=== PATIENT | male | born 1970 | race Caucasian/White ===

== ENCOUNTER → 2024-03-07 | Outpatient (CLI) | payer MEDICARE, MEDICAID, SELFPAY ==
[2024-03-07 09:31] LABS: Basophils # (Auto) 0.1 Thou/mm3 (0.0-0.2); Basophils % (Auto) 1 % (0-2.5); Eosinophils # (Auto) 0.1 Thou/mm3 (0.0-0.5); Eosinophils % (Auto) 2 % (0-10); Hematocrit 38.4 % (41.0-53.0); Hemoglobin 13.2 g/dL (13.5-16.0); Immature Granulocytes % (Auto) 1 % (0-0); Immature Granulocytes Auto 0.04 Thou/mm3 (0.00-0.00); Lymphocytes # (Auto) 2.5 Thou/mm3 (1.0-4.8); Lymphocytes % (Auto) 30 % (10-50); Mean Corpuscular HGB Conc 34.4 g/dl (31.0-37.0); Mean Corpuscular Hemoglobin 28.1 pg (25.0-35.0); Mean Corpuscular Volume 82 fL (80-100); Monocytes # (Auto) 0.7 Thou/mm3 (0.0-0.8); Monocytes % (Auto) 9 % (0-12); Neutrophils # (Auto) 4.8 Thou/mm3 (1.8-7.7); Neutrophils % (Auto) 58 % (37-80); Nucleated Red Blood Cell % 0 /100 WBC (0); Platelet Count 219 Thou/mm3 (140-440); RDW Standard Deviation 41.3 fL (35.1-43.9); White Blood Count 8.2 Thou/mm3 (3.8-10.6)
[2024-03-07 09:38] LABS: B-Type Natriuretic Peptide 221 pg/mL (0-100)
[2024-03-07 09:40] LABS: Glucose Estimated Average 160 mg/dL (80-131); Hemoglobin A1C 7.2 % Hgb (4.8-6.0)
[2024-03-07 09:43] LABS: Prostate Specific Antigen 0.37 ng/mL (0-4.00)
[2024-03-07 09:48] LABS: Alanine Aminotransferase 27 U/L (10-49); Albumin, Serum 5.1 gm/dL (3.5-5.0); Albumin/Globulin Ratio 1.8 (1.2-2.2); Alkaline Phosphatase 112 U/L (46-116); Anion Gap 10 (7-16); Aspartate Amino Transferase 24 U/L (0-34); BUN/Creatinine Ratio 38 Ratio (12-20); Bilirubin,Total 1.1 mg/dL (0.3-1.2); Blood Urea Nitrogen 57 mg/dL (9-23); Calcium 9.9 mg/dL (8.3-10.6); Calcium (Corrected) 9.9 mg/dL (8.5-10.1); Carbon Dioxide 38.5 mMol/L (20.0-31.0); Cardiac Risk Estimate 2.2 RATIO (4.0-6.7); Chloride 82 mMol/L (98-107); Cholesterol 144 mg/dL (132-200); Creatinine (Component) 1.5 mg/dL (0.6-1.3); Free T4 (Free Thyroxine) 1.58 ng/dL (0.89-1.76); Globulin 2.8 gm/dL (2.3-3.5); Glucose 144 mg/dL (74-106); HDL Cholesterol 66 mg/dL (40-60); LDL Cholesterol,Calculated 50 mg/dL (0-130); Osmolality,Calculated 279 (275-295); Phosphorous 5.1 mg/dL (2.4-5.1); Potassium 3.8 mMol/L (3.4-5.1); Sodium 130 mMol/L (136-145); Thyroid Stimulating Hormone 9.68 uIU/mL (0.55-4.78); Total Protein 7.9 gm/dL (5.7-8.2); Triglycerides 142 mg/dL (30-150); eGFR 55 See Note
[2024-03-07 09:50] LABS: Vitamin D 25 Hydroxy Total 29.9 ng/mL (7.3-40.2)
== END | disposition home or self-care (01) ==
LOC: COPL 08:04
PROVIDERS: PCP Internal Medicine; Referring Provider Internal Medicine; Visit Provider Internal Medicine Cardiovascular Disease
DX: M19.90 Unspecified osteoarthritis, unspecified site (principal); E11.9 Type 2 diabetes mellitus without complications; N40.1 Benign prostatic hyperplasia with lower urinary tract symptoms; E55.9 Vitamin D deficiency, unspecified; E78.2 Mixed hyperlipidemia; E03.9 Hypothyroidism, unspecified; I50.22 Chronic systolic (congestive) heart failure; I48.21 Permanent atrial fibrillation
CPT/HCPCS: 36415; 80053; 80061; 82306; 83036; 83880; 84100; 84153; 84439; 84443; 85025

== ENCOUNTER → 2024-03-24 | Outpatient (CLI) | payer MEDICARE, MEDICAID, SELFPAY ==
--- NOTE | 2024-03-24 15:28 | XR_ITS ---
Examination: CT cervical spine without contrast 2-D sagittal reconstructions 2-D coronal reconstructions 3-D reconstructions. Exam date and time:March 24, 2024 1531 hours Comparison September 17, 2021 INDICATIONS: Patient fell today with injury to the neck, neck pain, history cervical fusion CTDI:vol (mGy) 16.5 DLP: (mGycm) 385 Technique: Multiple 2 mm axial sections of the cervical spine have been obtained. The coronal and sagittal reconstructions have been obtained. 3-D reconstructions have been obtained. Low dose protocols were performed. One or more of the following dose reduction techniques were used; automated exposure control, adjustment of the mA and/or KV according to patient size, use of iterative reconstruction technique. Findings: Axial sections demonstrate intact base of the skull. C1 exhibit satisfactory relationship to the odontoid. No acute cervical vertebral body fracture seen. Alignment posterior spinous processes satisfactory. Again noted cervical fusion C4-T1 with anatomic alignment with laminectomies Moderate disc narrowing C3-C4 C4-C5 moderate right neural foraminal stenosis No focal cervical disc protrusion Impression: No acute cervical fracture. Stable alignment extensive cervical fusion C4-C5 moderate right neural foraminal stenosis
== END | disposition home or self-care (01) ==
LOC: CCTX 14:57
PROVIDERS: PCP Internal Medicine; Referring Provider Internal Medicine; Visit Provider Internal Medicine
DX: M43.22 Fusion of spine, cervical region (principal); M48.02 Spinal stenosis, cervical region
CPT/HCPCS: 72125

== ENCOUNTER → 2024-04-27 | Outpatient (CLI) | payer MEDICARE, MEDICAID, SELFPAY ==
[2024-04-27 15:50] LABS: Basophils # (Auto) 0.1 Thou/mm3 (0.0-0.2); Basophils % (Auto) 1 % (0-2.5); Eosinophils # (Auto) 0.1 Thou/mm3 (0.0-0.5); Eosinophils % (Auto) 1 % (0-10); Hematocrit 38.3 % (41.0-53.0); Immature Granulocytes % (Auto) 1 % (0-0); Immature Granulocytes Auto 0.05 Thou/mm3 (0.00-0.00); Lymphocytes # (Auto) 3.3 Thou/mm3 (1.0-4.8); Lymphocytes % (Auto) 37 % (10-50); Mean Corpuscular HGB Conc 33.9 g/dl (31.0-37.0); Mean Corpuscular Hemoglobin 29.1 pg (25.0-35.0); Mean Corpuscular Volume 86 fL (80-100); Monocytes # (Auto) 0.9 Thou/mm3 (0.0-0.8); Monocytes % (Auto) 10 % (0-12); Neutrophils # (Auto) 4.7 Thou/mm3 (1.8-7.7); Neutrophils % (Auto) 52 % (37-80); Nucleated Red Blood Cell % 0 /100 WBC (0); Platelet Count 210 Thou/mm3 (140-440); RDW Standard Deviation 41.6 fL (35.1-43.9); Red Blood Count 4.46 Miln/mm3 (4.50-5.90); White Blood Count 9.1 Thou/mm3 (3.8-10.6)
[2024-04-27 16:05] LABS: Alanine Aminotransferase 30 U/L (10-49); Albumin, Serum 4.8 gm/dL (3.5-5.0); Albumin/Globulin Ratio 1.7 (1.2-2.2); Alkaline Phosphatase 137 U/L (46-116); Anion Gap 9 (7-16); Aspartate Amino Transferase 29 U/L (0-34); BUN/Creatinine Ratio 30 Ratio (12-20); Bilirubin,Total 0.6 mg/dL (0.3-1.2); Blood Urea Nitrogen 66 mg/dL (9-23); Calcium 9.7 mg/dL (8.3-10.6); Calcium (Corrected) 9.7 mg/dL (8.5-10.1); Carbon Dioxide 37.7 mMol/L (20.0-31.0); Chloride 88 mMol/L (98-107); Creatinine (Component) 2.2 mg/dL (0.6-1.3); Globulin 2.8 gm/dL (2.3-3.5); Glucose 181 mg/dL (74-106); Osmolality,Calculated 294 (275-295); Potassium 3.9 mMol/L (3.4-5.1); Sodium 135 mMol/L (136-145); Total Protein 7.6 gm/dL (5.7-8.2); eGFR 35 See Note
[2024-04-27 16:17] LABS: Glucose Estimated Average 166 mg/dL (80-131); Hemoglobin A1C 7.4 % Hgb (4.8-6.0)
== END | disposition home or self-care (01) ==
LOC: COPL 14:06
PROVIDERS: PCP Internal Medicine; Referring Provider Internal Medicine Cardiovascular Disease; Visit Provider Internal Medicine Cardiovascular Disease
DX: I50.22 Chronic systolic (congestive) heart failure (principal); I48.21 Permanent atrial fibrillation; I42.0 Dilated cardiomyopathy
CPT/HCPCS: 36415; 80053; 83036; 85025

== ENCOUNTER → 2024-05-10 | Outpatient (CLI) | payer MEDICARE, MEDICAID, SELFPAY ==
--- NOTE | 2024-05-10 16:35 | XR_ITS ---
Examination: Right elbow 3 views Technique: Elbow AP, oblique, lateral 3 views Exam date and time: May 18 1654 hrs. Indications: Patient fell 5 days ago dated to the elbow, elbow pain. Findings: No acute fracture No dislocation Small posterior bony spur Impression: No acute fracture.
== END | disposition home or self-care (01) ==
PROVIDERS: PCP Internal Medicine; Referring Provider Internal Medicine; Visit Provider Internal Medicine
DX: S59.901A Unspecified injury of right elbow, initial encounter (principal); W19.XXXA Unspecified fall, initial encounter
CPT/HCPCS: 73080

== ENCOUNTER 2024-05-22 01:45 | Emergency (ER) | payer MEDICARE, MEDICAID, SELFPAY ==
[2024-05-22 01:46] VITALS: BMI 38.2
[2024-05-22 02:09] VITALS: BP 130/60; PULSE 108; RESP 19; TEMP 37.1; O2SAT 96
--- NOTE | 2024-05-22 02:16 | XR_ITS ---
Examination: CT right ankle, without contrast. 2-D sagittal reconstructions. 2-D coronal reconstructions. 3-D reconstructions. Date and time of exam:May 22, 2024 0302 hrs. Indications: Patient fell 2 weeks ago with injury to the ankle, ankle pain CTDI: vol (mGy):5.35 DLP: (mGycm):140 Technique: Multiple 1.25 mm axial sections of the right ankle without intravenous contrast have been obtained. 2-D sagittal and coronal reconstructions have been obtained. 3-D reconstructions have been obtained. Low dose protocols were performed. One or more of the following dose reduction techniques were used; automated exposure control, adjustment of the mA and/or KV according to patient size, use of iterative reconstruction technique. Findings: Mild edema in the subcutaneous fatty tissue No soft tissue abscess Distal tibia and distal fibula intact Calcaneus cuboid and navicular and cuneiforms intact No cortical bone destruction Impression: Cellulitis pattern Mild osteoarthritis tibiotalar joint No fracture or cortical bone destruction
--- NOTE | 2024-05-22 02:16 | XR_ITS ---
Examination: CT right foot, without contrast. 2-D sagittal reconstructions. 2-D coronal reconstructions. 3-D reconstructions. Date and time of exam:May 22, 2024 0302 hrs. Indications: Right foot redness swelling and pain after falling 2 weeks ago CTDI: vol (mGy):5.38 DLP: (mGycm):151 Technique: Multiple 1.25 mm axial sections of the right foot without intravenous contrast have been obtained. 2-D sagittal and coronal reconstructions have been obtained. 3-D reconstructions have been obtained. Low dose protocols were performed. One or more of the following dose reduction techniques were used; automated exposure control, adjustment of the mA and/or KV according to patient size, use of iterative reconstruction technique. Findings: Edema in the soft tissues surrounding the foot and ankle Distal tibia and distal fibula intact Calcaneus talus navicular cuboid and cuneiforms intact No Lisfranc tarsometatarsal dislocation Significant narrowing first metatarsophalangeal joint No opaque foreign body Impression: Cellulitis pattern Significant osteoarthritis first metatarsophalangeal joint No fracture
--- NOTE | 2024-05-22 02:18 | PD.EDRME ---
Rapid Medical Screening Exam [facility] Arrival date/time: 05/22/24 01:45 With past medical history of COPD and on home oxygen presents to the emergency department complaining of right foot pain and swelling that started 2 days ago. Patient reports had a fall 2 weeks ago and another fall 2 days ago that resulted in injury to right foot. Chief Complaint: Ankle/Foot Injury Time Seen by Provider: 05/22/24 01:55 Vital signs: Vital Signs Temperature 98.8 F 05/22/24 02:09 Pulse Rate 108 H 05/22/24 02:09 Respiratory Rate 19 05/22/24 02:09 Blood Pressure 130/60 05/22/24 02:09 Pulse Oximetry (%) 96 05/22/24 02:09 Oxygen Delivery Method Room Air 05/22/24 02:09 Oxygen Flow Rate 3 05/22/24 02:09 Vital signs reviewed by provider: Yes
[2024-05-22] MEDS: HYDROcodone/APAP 5/325 TABLET 1 TAB PO (03:30)
--- NOTE | 2024-05-22 04:36 | PRELIM_ITS ---
CT right ankle without intravenous contrast (axial sections with sagittal and coronal reformats). May 22, 2024, at 0302 hours. 3D reconstructed images were also provided. Clinical History: Pain and swelling Comparison: No prior study is available for comparison. Findings: No fracture or dislocation is seen. Mild degenerative changes are seen in the ankle joint, evident with mildly decreased joint space, subchondral sclerosis, and articular surface irregularity. The ankle mortise is intact. Mild effusion is seen in the ankle joint. The visualized muscles are unremarkable with maintained intermuscular fat planes. A few prominent subcutaneous veins/varicose veins are seen in the leg. There is subcutaneous fat stranding and edema in the foot, around the ankle, and in the distal leg. No evidence of loculated drainable soft tissue fluid collection or abscess identified on this noncontrast study. No evidence of soft tissue gas. There is a small plantar calcaneal spur. Impression: 1. No evidence of fracture or dislocation. 2. Mild ankle osteoarthritis. 3. Subcutaneous fat stranding and edema in the foot, around the ankle, and in the distal leg, of unclear etiology; in the appropriate clinical setting, cellulitis cannot be excluded. 4. Other findings as described above. Please refer to the report on CT foot submitted separately. Report Electronically Signed By: Yancy Clemente 05/22/2024 4:36:10 AM [EST]
--- NOTE | 2024-05-22 04:45 | PRELIM_ITS ---
CT scan of the right foot without intravenous contrast (axial sections with sagittal and coronal reformats); dated May 22, 2024 at 0302 hours Clinical History: Right foot pain and swelling. Comparison: No prior study is available for comparison. Findings: There is no fracture or dislocation. No evidence of osteomyelitis or septic arthritis. The alignment is maintained. Osseous degenerative changes are noted. Small cysts/geodes are seen at the base of 2nd and 3rd metatarsals. The foot muscles are atrophic and demonstrates fatty infiltration. There is subcutaneous fat stranding and edema in the foot, around the ankle and in the distal leg. No evidence of loculated drainable soft tissue fluid collection or abscess identified on this noncontrast study. No evidence of soft tissue gas. Impression: No evidence of fracture or dislocation. Subcutaneous fat stranding and edema in the foot, around the ankle, and in the distal leg, of unclear etiology; in the appropriate clinical setting, cellulitis cannot be excluded. Other findings as described above. Recommend clinical correlation and follow- up. Please refer to report on CT ankle submitted separately. Report Electronically Signed By: Yancy Clemente 05/22/2024 4:44:54 AM [EST]
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
[2024-05-22] MEDS: cefTRIAXone 1,000 MG, LIDOCAINE 1% 20 ML 2.1 ML IM (05:16)
[2024-05-22 05:23] VITALS: RESP 18
== END 2024-05-22 05:23 | disposition home or self-care (01) ==
PROVIDERS: Emergency Provider Emergency Medicine; PCP Internal Medicine
DX: L03.115 Cellulitis of right lower limb (principal); J44.9 Chronic obstructive pulmonary disease, unspecified; Z99.81 Dependence on supplemental oxygen
CPT/HCPCS: 73700; 96372; 99284; J0696; J3490; A9270

== ENCOUNTER → 2024-07-25 | Outpatient (CLI) | payer MEDICARE, MEDICAID, SELFPAY ==
[2024-07-25 18:01] LABS: Vitamin D 25 Hydroxy Total 36.1 ng/mL (7.3-40.2)
[2024-07-25 18:02] LABS: Albumin, Serum 4.7 gm/dL (3.5-5.0); Anion Gap 4 (7-16); BUN/Creatinine Ratio 18 Ratio (12-20); Blood Urea Nitrogen 21 mg/dL (9-23); Calcium 9.5 mg/dL (8.3-10.6); Calcium (Corrected) 9.5 mg/dL (8.5-10.1); Carbon Dioxide 36.9 mMol/L (20.0-31.0); Cardiac Risk Estimate 2.6 RATIO (4.0-6.7); Chloride 99 mMol/L (98-107); Cholesterol 128 mg/dL (132-200); Creatinine (Component) 1.2 mg/dL (0.6-1.3); Free T4 (Free Thyroxine) 1.39 ng/dL (0.89-1.76); Glucose 155 mg/dL (74-106); HDL Cholesterol 49 mg/dL (40-60); LDL Cholesterol,Calculated 44 mg/dL (0-130); Osmolality,Calculated 285 (275-295); Phosphorous 3.7 mg/dL (2.4-5.1); Potassium 4.6 mMol/L (3.4-5.1); Sodium 140 mMol/L (136-145); Thyroid Stimulating Hormone 11.94 uIU/mL (0.55-4.78); Triglycerides 177 mg/dL (30-150); eGFR > 60 See Note
== END | disposition home or self-care (01) ==
PROVIDERS: PCP Internal Medicine; Referring Provider Internal Medicine Cardiovascular Disease; Visit Provider Internal Medicine Cardiovascular Disease
DX: E03.9 Hypothyroidism, unspecified (principal); E55.9 Vitamin D deficiency, unspecified; I50.22 Chronic systolic (congestive) heart failure
CPT/HCPCS: 36415; 80061; 80069; 82306; 84439; 84443

== ENCOUNTER → 2024-07-31 | Outpatient (CLI) | payer MEDICARE, MEDICAID, SELFPAY ==
[2024-07-31 17:44] LABS: Albumin, Serum 5.1 gm/dL (3.5-5.0); Anion Gap 10 (7-16); BUN/Creatinine Ratio 25 Ratio (12-20); Blood Urea Nitrogen 52 mg/dL (9-23); Calcium 10.1 mg/dL (8.3-10.6); Calcium (Corrected) 10.1 mg/dL (8.5-10.1); Carbon Dioxide > 40.0 mMol/L (20.0-31.0); Chloride 85 mMol/L (98-107); Creatinine (Component) 2.1 mg/dL (0.6-1.3); Glucose 243 mg/dL (74-106); Osmolality,Calculated 292 (275-295); Phosphorous 3.5 mg/dL (2.4-5.1); Potassium 3.7 mMol/L (3.4-5.1); Sodium 135 mMol/L (136-145); eGFR 37 See Note
== END | disposition home or self-care (01) ==
LOC: COPL 16:17
PROVIDERS: PCP Internal Medicine; Referring Provider Internal Medicine Cardiovascular Disease; Visit Provider Internal Medicine Cardiovascular Disease
DX: I50.22 Chronic systolic (congestive) heart failure (principal); I42.0 Dilated cardiomyopathy; J44.9 Chronic obstructive pulmonary disease, unspecified
CPT/HCPCS: 36415; 80069

== ENCOUNTER → 2024-09-12 | Outpatient (CLI) | payer MEDICARE, SELFPAY ==
[2024-09-12 14:06] LABS: Albumin, Serum 4.7 gm/dL (3.5-5.0); Anion Gap 9 (7-16); BUN/Creatinine Ratio 19 Ratio (12-20); Blood Urea Nitrogen 31 mg/dL (9-23); Calcium 9.5 mg/dL (8.3-10.6); Calcium (Corrected) 9.5 mg/dL (8.5-10.1); Carbon Dioxide 38.9 mMol/L (20.0-31.0); Chloride 89 mMol/L (98-107); Creatinine (Component) 1.6 mg/dL (0.6-1.3); Glucose 197 mg/dL (74-106); Osmolality,Calculated 285 (275-295); Phosphorous 4.2 mg/dL (2.4-5.1); Sodium 137 mMol/L (136-145); eGFR 51 See Note
== END | disposition home or self-care (01) ==
PROVIDERS: PCP Internal Medicine; Referring Provider Internal Medicine Cardiovascular Disease; Visit Provider Internal Medicine Cardiovascular Disease
DX: I42.0 Dilated cardiomyopathy (principal)
CPT/HCPCS: 36415; 80069

== ENCOUNTER → 2024-10-30 | Outpatient (CLI) | payer MEDICARE, MEDICAID, SELFPAY ==
[2024-10-30 10:15] LABS: Basophils # (Auto) 0.1 Thou/mm3 (0.0-0.2); Basophils % (Auto) 1 % (0-2.5); Eosinophils # (Auto) 0.1 Thou/mm3 (0.0-0.5); Eosinophils % (Auto) 2 % (0-10); Hematocrit 35.6 % (41.0-53.0); Hemoglobin 12.0 g/dL (13.5-16.0); Immature Granulocytes Auto 0.04 Thou/mm3 (0.00-0.00); Lymphocytes # (Auto) 2.1 Thou/mm3 (1.0-4.8); Lymphocytes % (Auto) 28 % (10-50); Mean Corpuscular HGB Conc 33.7 g/dl (31.0-37.0); Mean Corpuscular Hemoglobin 29.1 pg (25.0-35.0); Mean Corpuscular Volume 86 fL (80-100); Monocytes # (Auto) 0.7 Thou/mm3 (0.0-0.8); Monocytes % (Auto) 9 % (0-12); Neutrophils # (Auto) 4.4 Thou/mm3 (1.8-7.7); Neutrophils % (Auto) 59 % (37-80); Nucleated Red Blood Cell # 0.00 Thou/mm3 (0.00-0.00); Nucleated Red Blood Cell % 0 /100 WBC (0); Platelet Count 231 Thou/mm3 (140-440); RDW Standard Deviation 42.0 fL (35.1-43.9); Red Blood Count 4.12 Miln/mm3 (4.50-5.90); White Blood Count 7.4 Thou/mm3 (3.8-10.6)
[2024-10-30 10:26] LABS: Creatinine MALB Rnd Ur 66 mg/dL (30-125); Microalbumin Creat Ratio 17 mg/gCrea (<30); Microalbumin, Random Urine 11 mg/L (0-300)
[2024-10-30 10:28] LABS: Alanine Aminotransferase 50 U/L (10-49); Albumin, Serum 4.7 gm/dL (3.5-5.0); Albumin/Globulin Ratio 1.8 (1.2-2.2); Alkaline Phosphatase 85 U/L (46-116); Anion Gap 13 (7-16); Aspartate Amino Transferase 52 U/L (0-34); BUN/Creatinine Ratio 19 Ratio (12-20); Bilirubin,Total 0.7 mg/dL (0.3-1.2); Blood Urea Nitrogen 33 mg/dL (9-23); Calcium 9.8 mg/dL (8.3-10.6); Calcium (Corrected) 9.8 mg/dL (8.5-10.1); Carbon Dioxide 35.9 mMol/L (20.0-31.0); Cardiac Risk Estimate 2.7 RATIO (4.0-6.7); Chloride 84 mMol/L (98-107); Cholesterol 152 mg/dL (132-200); Creatinine (Component) 1.7 mg/dL (0.6-1.3); Free T4 (Free Thyroxine) 1.66 ng/dL (0.89-1.76); Globulin 2.6 gm/dL (2.3-3.5); Glucose 189 mg/dL (74-106); HDL Cholesterol 56 mg/dL (40-60); LDL Cholesterol,Calculated 58 mg/dL (0-130); Osmolality,Calculated 278 (275-295); Phosphorous 4.7 mg/dL (2.4-5.1); Potassium 3.7 mMol/L (3.4-5.1); Sodium 133 mMol/L (136-145); Thyroid Stimulating Hormone 11.65 uIU/mL (0.55-4.78); Total Protein 7.3 gm/dL (5.7-8.2); Triglycerides 192 mg/dL (30-150); eGFR 47 See Note
[2024-10-30 10:32] LABS: Prostate Specific Antigen 0.28 ng/mL (0-4.00)
[2024-10-30 10:44] LABS: Vitamin D 25 Hydroxy Total 30.4 ng/mL (7.3-40.2)
[2024-10-30 11:05] LABS: Glucose Estimated Average 197 mg/dL (80-131); Hemoglobin A1C 8.5 % Hgb (4.8-6.0)
== END | disposition home or self-care (01) ==
LOC: COPL 08:50
PROVIDERS: PCP Internal Medicine; Referring Provider Internal Medicine Cardiovascular Disease; Visit Provider Internal Medicine Cardiovascular Disease
DX: I11.0 Hypertensive heart disease with heart failure (principal); I50.22 Chronic systolic (congestive) heart failure; N40.1 Benign prostatic hyperplasia with lower urinary tract symptoms; E55.9 Vitamin D deficiency, unspecified
CPT/HCPCS: 36415; 80053; 80061; 82043; 82306; 82570; 83036; 84100; 84153; 84439; 84443; 85025

== ENCOUNTER 2024-12-09 19:25 | Inpatient (IN) | payer MEDICARE, MEDICAID, SELFPAY ==
[2024-12-09 19:27] VITALS: BMI 40.6
--- NOTE | 2024-12-09 19:31 | EKG_ITS ---
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
[2024-12-09 19:51] VITALS: BP 150/75; PULSE 91; RESP 17; TEMP 36.9; O2SAT 96
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
[2024-12-09 20:41] LABS: Basophils # (Auto) 0.0 Thou/mm3 (0.0-0.2); Basophils % (Auto) 0 % (0-2.5); Eosinophils # (Auto) 0.2 Thou/mm3 (0.0-0.5); Eosinophils % (Auto) 2 % (0-10); Hematocrit 33.0 % (41.0-53.0); Hemoglobin 11.0 g/dL (13.5-16.0); Immature Granulocytes Auto 0.03 Thou/mm3 (0.00-0.00); Lymphocytes # (Auto) 1.5 Thou/mm3 (1.0-4.8); Lymphocytes % (Auto) 21 % (10-50); Mean Corpuscular HGB Conc 33.3 g/dl (31.0-37.0); Mean Corpuscular Hemoglobin 29.7 pg (25.0-35.0); Mean Corpuscular Volume 89 fL (80-100); Monocytes # (Auto) 0.6 Thou/mm3 (0.0-0.8); Monocytes % (Auto) 7 % (0-12); Neutrophils # (Auto) 5.1 Thou/mm3 (1.8-7.7); Neutrophils % (Auto) 69 % (37-80); Nucleated Red Blood Cell # 0.00 Thou/mm3 (0.00-0.00); Nucleated Red Blood Cell % 0 /100 WBC (0); Platelet Count 194 Thou/mm3 (140-440); RDW Standard Deviation 44.3 fL (35.1-43.9); Red Blood Count 3.70 Miln/mm3 (4.50-5.90); White Blood Count 7.4 Thou/mm3 (3.8-10.6)
[2024-12-09 20:57] LABS: INR 1.1 (0.9-1.3); Prothrombin Time 12.4 Seconds (9.0-12.2)
[2024-12-09 21:00] LABS: Alanine Aminotransferase 45 U/L (10-49); Albumin, Serum 4.6 gm/dL (3.5-5.0); Albumin/Globulin Ratio 1.8 (1.2-2.2); Alkaline Phosphatase 81 U/L (46-116); Anion Gap 9 (7-16); Aspartate Amino Transferase 41 U/L (0-34); BUN/Creatinine Ratio 13 Ratio (12-20); Bilirubin,Total 0.7 mg/dL (0.3-1.2); Blood Urea Nitrogen 20 mg/dL (9-23); Calcium 9.6 mg/dL (8.3-10.6); Calcium (Corrected) 9.6 mg/dL (8.5-10.1); Carbon Dioxide 36.9 mMol/L (20.0-31.0); Chloride 94 mMol/L (98-107); Creatinine (Component) 1.5 mg/dL (0.6-1.3); Estimated Creatinine Clearance 87.3 mL/min (>60); Globulin 2.6 gm/dL (2.3-3.5); Glucose 161 mg/dL (74-106); Osmolality,Calculated 285 (275-295); Potassium 4.2 mMol/L (3.4-5.1); Sodium 140 mMol/L (136-145); Total Protein 7.2 gm/dL (5.7-8.2); Troponin I < 0.002 ng/mL (0.0-0.045); eGFR 55 See Note
[2024-12-09 21:04] LABS: B-Type Natriuretic Peptide 485 pg/mL (0-100)
[2024-12-09 23:53] VITALS: BP 112/70; PULSE 74; RESP 20; TEMP 37.1; O2SAT 96
[2024-12-10] VITALS (19 sets, daily range): BP systolic 110–164; BP diastolic 65–125; PULSE 66–88; RESP 11–19; TEMP 36.1–36.6; O2SAT 95–100
--- NOTE | 2024-12-10 01:15 | PD.EDRME ---
Rapid Medical Screening Exam [facility] Arrival date/time: 12/09/24 19:25 Chief Complaint: Chest Pain Time Seen by Provider: 12/09/24 19:59 Vital signs: Vital Signs Temperature 98.5 F 12/09/24 19:51 Pulse Rate 91 12/09/24 19:51 Respiratory Rate 17 12/09/24 19:51 Blood Pressure 150/75 H 12/09/24 19:51 Pulse Oximetry (%) 96 12/09/24 19:51 Oxygen Delivery Method Nasal Cannula 12/09/24 19:51 Oxygen Flow Rate 3 12/09/24 19:51 RME Narrative: 54-year-old male with an extensive cardiac history presents to the ER complaining of increased shortness of breath and chest pain which began this morning and since then he had to increase his O2 from 2 to 3 liters which is not typical for him. He states he gained about 20 pounds in the past week. 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 Patient reports compliance with metolazone 3mg daily amongst the remainder of his medications.
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
[2024-12-10] MEDS: FUROSEMIDE INJ 10 MG/ML 4ML VIAL 40 MG IVP (02:20)
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
--- NOTE | 2024-12-10 03:39 | PC.NURSE ---
pt refused phillips, unable to redirect
--- NOTE | 2024-12-10 04:26 | PC.NURSE ---
Attempted to call report, waiting for a callback
[2024-12-10 05:18] LABS: Basophils # (Auto) 0.1 Thou/mm3 (0.0-0.2); Basophils % (Auto) 1 % (0-2.5); Eosinophils # (Auto) 0.1 Thou/mm3 (0.0-0.5); Eosinophils % (Auto) 2 % (0-10); Hematocrit 32.1 % (41.0-53.0); Hemoglobin 10.4 g/dL (13.5-16.0); Immature Granulocytes Auto 0.02 Thou/mm3 (0.00-0.00); Lymphocytes # (Auto) 2.0 Thou/mm3 (1.0-4.8); Lymphocytes % (Auto) 28 % (10-50); Mean Corpuscular HGB Conc 32.4 g/dl (31.0-37.0); Mean Corpuscular Hemoglobin 29.3 pg (25.0-35.0); Mean Corpuscular Volume 90 fL (80-100); Monocytes # (Auto) 0.6 Thou/mm3 (0.0-0.8); Monocytes % (Auto) 9 % (0-12); Neutrophils # (Auto) 4.2 Thou/mm3 (1.8-7.7); Neutrophils % (Auto) 60 % (37-80); Nucleated Red Blood Cell # 0.00 Thou/mm3 (0.00-0.00); Nucleated Red Blood Cell % 0 /100 WBC (0); Platelet Count 187 Thou/mm3 (140-440); RDW Standard Deviation 45.0 fL (35.1-43.9); Red Blood Count 3.55 Miln/mm3 (4.50-5.90); White Blood Count 7.1 Thou/mm3 (3.8-10.6)
[2024-12-10 05:38] LABS: Glucose Estimated Average 183 mg/dL (80-131); Hemoglobin A1C 8.0 % Hgb (4.8-6.0)
[2024-12-10 05:42] LABS: Alanine Aminotransferase 38 U/L (10-49); Albumin, Serum 4.3 gm/dL (3.5-5.0); Albumin/Globulin Ratio 1.7 (1.2-2.2); Alkaline Phosphatase 74 U/L (46-116); Anion Gap 10 (7-16); Aspartate Amino Transferase 31 U/L (0-34); BUN/Creatinine Ratio 13 Ratio (12-20); Bilirubin,Total 0.6 mg/dL (0.3-1.2); Blood Urea Nitrogen 18 mg/dL (9-23); Calcium 9.6 mg/dL (8.3-10.6); Calcium (Corrected) 9.6 mg/dL (8.5-10.1); Carbon Dioxide 37.0 mMol/L (20.0-31.0); Chloride 92 mMol/L (98-107); Creatinine (Component) 1.4 mg/dL (0.6-1.3); Estimated Creatinine Clearance 93.6 mL/min (>60); Globulin 2.5 gm/dL (2.3-3.5); Glucose 182 mg/dL (74-106); Magnesium 2.0 mg/dL (1.6-2.6); Osmolality,Calculated 284 (275-295); Potassium 3.9 mMol/L (3.4-5.1); Sodium 139 mMol/L (136-145); Total Protein 6.8 gm/dL (5.7-8.2); eGFR 60 See Note
[2024-12-10] MEDS: BUMETANIDE INJ 0.25 MG/ML VIAL 4 ML 2 MG IVP ×3 (06:09→22:09)
[2024-12-10] MEDS: HYDROMORPHONE HCL 2 MG TABLET 4 MG PO ×3 (06:09→21:03)
[2024-12-10] MEDS: APIXABAN 2.5 MG TABLET 5 MG PO ×2 (09:12→21:04)
[2024-12-10] MEDS: DAPAGLIFLOZIN PROPANEDIOL 5 MG TABLET 10 MG PO (09:12)
[2024-12-10] MEDS: GABAPENTIN 300 MG CAPSULE PO (09:12)
[2024-12-10] MEDS: POTASSIUM CHL 10 mEq IVPB 10 MEQ/100 ML BAG 50 MEQ IV (09:12)
[2024-12-10] MEDS: PANTOPRAZOLE 40 MG TABLET PO (09:13)
[2024-12-10] MEDS: EPLERENONE 50 MG TABLET PO (09:18)
[2024-12-10] MEDS: INSULIN LISPRO (AdmeLOG) 1 UNIT/0.01 ML UNIT SC ×3 (09:18→17:38)
[2024-12-10] MEDS: AMIODARONE HCL 200 MG TABLET 100 MG PO ×3 (09:22→22:06)
--- NOTE | 2024-12-10 10:40 | PC.SS ---
Patient is alert/oriented. Patient was able to verify demographics. Patient resides with . Patient was admitted for CHF. Patient uses a walker at home. Patient has 02 at home ([employer]). He states he has 2-3L. Patient is independent with ADL's. Patient follows with Dr. Felix. Last appt. was 3 weeks ago. provides transportation assistance. Patient also follows with Dr. Marshall ([facility]-pain management) and Dr. Hutchinson. [facility]acy: [facility]. D/c plan: return home with . Alt medical decision maker: , Santa Barnes, D/c plan: return home
[2024-12-10] MEDS: LACTULOSE SYRUP 20 GM/30 ML UDC PO (11:00)
--- NOTE | 2024-12-10 11:35 | XR_ITS ---
Examination: Right elbow 3 views Technique: Elbow AP, oblique, lateral 3 views Exam date and time: December 10, 2024, 12 noon. Indications: Onset elbow pain today. Findings: Mild elbow osteoarthritis. 6 mm posterior bony olecranon spur. No fracture Impression: Mild elbow osteoarthritis.
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
--- NOTE | 2024-12-10 12:59 | ESPR_ITS ---
<Statement entered by Moses Montejo MD - 12/10/24 13:25> Overnight admission. Seen and examined at bedside and patient appeared to be ambulating well in the room and saturating well on his baseline 2 L nasal cannula. Follows Dr. Castaneda outpatient and will continue with Bumex 2 mg IV TID. Endorses stomach fullness/pressure and last BM 2 days ago so restarted home Movantik. Will monitor I's and O's and follow-up recommendations from cardiology. ----- Note reviewed and agree with care plan as documented. Please refer to the note below for further details. Plan discussed with attending physician Dr. Binh Montejo MD PGY-2 Internal Medicine Documentation for date of: 12/10/24 Subjective Subjective Interval history: Patient was seen and examined at bedside. No acute events took place overnight. Patient was admitted overnight for worsening chest pain, SOB requiring 3 L of O2 via NC (a liter more than his baseline), bilateral lower extremity edema, and more than 20 pound weight gain for the last week. Additionally patient reported history of constipation. Last BM 2d ago, feels too much pressure in his abdomen that is new. and takes Moventik laxative, which we resumed inpatient. Exam Vital Signs Temp Pulse Resp BP Pulse Ox O2 Del Method O2 Flow Rate 97.2 F 68 16 148/78 H 100 Nasal Cannula 2 12/10/24 08:00 12/10/24 09:22 12/10/24 08:00 12/10/24 09:22 12/10/24 08:00 12/10/24 08:00 12/10/24 08:00 Narrative Exam General: Alert, no acute distress.Conversational and obese habitus Skin: Warm, dry, intact. No rash or ecchymoses. Head: Normocephalic, atraumatic. Eye: Normal conjunctiva, PERRL. Throat: Oral mucosa moist. No obvious lesions in oropharynx. Cardiovascular: Regular rate and rhythm, no murmur, +S1/S2. Tele devise HR 68 afib. Respiratory: Lungs are clear to auscultation, respirations unlabored, mild rhonchi. No wheezing. Gastrointestinal: Transverse surgical scar on the left upper edge of the abdomen, and a morphine pump at the left hypochondriac area. Abdomen hard, nontender, distended. Percussion dull. No guarding or rebound tenderness. Extremities: BLE pitting edema from the dorsum of both feet up to the level of the knees, 1+ Rt and 2-3+ Lt. No edema, no cyanosis, no clubbing. ; scrotal edema Neuro: Alert and oriented x3.No focal deficits observed. Conversant, moving all extremities. No overt cerebellar signs/incoordination. Psychiatric: Cooperative, appropriate affect Objective Labs 12/11/24 05:14 12/11/24 05:14 Labs: Laboratory Results - last 24 hr 12/09/24 12/10/24 20:25 04:20 WBC 7.4 7.1 RBC 3.70 L 3.55 L Hgb 11.0 L 10.4 L Hct 33.0 L 32.1 L MCV 89 90 MCH 29.7 29.3 MCHC 33.3 32.4 RDW Std Deviation 44.3 H 45.0 H Plt Count 194 D 187 Neut % (Auto) 69 60 Lymph % (Auto) 21 28 Mchenry % (Auto) 7 9 Eos % (Auto) 2 2 Baso % (Auto) 0 1 Neut # (Auto) 5.1 4.2 Lymph # (Auto) 1.5 2.0 Mchenry # (Auto) 0.6 0.6 Eos # (Auto) 0.2 0.1 Baso # (Auto) 0.0 0.1 Immature Gran # (Auto) 0.03 H 0.02 H Absolute Nucleated RBC 0.00 0.00 Immature Gran % 0 0 Nucleated RBC % 0 0 PT 12.4 H INR 1.1 Sodium 140 139 Potassium 4.2 3.9 Chloride 94 L 92 L Carbon Dioxide 36.9 H 37.0 H Anion Gap 9 10 BUN 20 18 Creatinine 1.5 H 1.4 H Estim Creat Clear Calc 87.3 93.6 eGFR 55 L 60 BUN/Creatinine Ratio 13 13 Glucose [address] Glu mg/dL 183 H Hemoglobin A1c 8.0 H Calculated Osmolality 285 284 Calcium 9.6 9.6 Corrected Calcium 9.6 9.6 Magnesium 2.0 Total Bilirubin 0.7 0.6 AST 41 H 31 ALT 45 38 Alkaline Phosphatase 81 74 Troponin I < 0.002 B-Natriuretic Peptide 485 H* Total Protein 7.2 6.8 Albumin 4.6 4.3 Globulin 2.6 2.5 Albumin/Globulin Ratio 1.8 1.7 Quality Measures Quality Measures none Assessment & Plan Assessment Current Active Medications: Generic Name Dose Route Start Last Admin Trade Name Freanna PRN Reason Stop Dose Admin Acetaminophen 650 mg 12/10/24 10:22 Acetaminophen 325 Mg Tablet PO 01/09/25 03:07 Q6H PRN Fever >100.4 Amiodarone HCl 100 mg 12/10/24 09:15 12/10/24 09:22 Amiodarone Hcl 200 Mg Tablet PO 01/09/25 09:14 100 mg On Hold: 12/10/24 09:58 QID ELVIN Administration Apixaban 5 mg 12/10/24 09:00 12/10/24 09:12 Apixaban 2.5 Mg Tablet PO 01/09/25 08:59 5 mg BID ELVIN Administration Atorvastatin Calcium 40 mg 12/10/24 21:00 Atorvastatin Calcium 20 Mg Tablet PO 01/09/25 20:59 HS ELVIN Bumetanide 2 mg 12/10/24 06:00 12/10/24 06:09 Bumetanide Inj 0.25 Mg/Ml Vial 4 Ml IVP 01/09/25 05:59 2 mg TID ELVIN Administration Carvedilol 25 mg 12/10/24 09:00 12/10/24 09:13 Carvedilol 12.5 Mg Tablet PO 01/09/25 08:59 25 mg BID ELVIN Administration Eplerenone 50 Mg 0 ea 12/10/24 09:00 12/10/24 09:18 Tablet PO 01/09/25 08:59 1 tablet QDAY ELVIN Administration Dapagliflozin 10 mg 12/10/24 09:00 12/10/24 09:12 Dapagliflozin Propanediol 5 Mg Tablet PO 01/09/25 08:59 10 mg QAM ELVIN Administration Dextrose 25 ml 12/10/24 06:01 Dextrose 50%-Water Inj 50 Ml Syringe IV 01/09/25 06:00 Q15MIN PRN BG 50-70 responsive npo pt Dextrose 50 ml 12/10/24 06:01 Dextrose 50%-Water Inj 50 Ml Syringe IV 01/09/25 06:00 Q15MIN PRN BG <50 OR BG <70 & pt unresponsive Gabapentin 300 mg 12/10/24 09:00 12/10/24 09:12 Gabapentin 300 Mg Capsule PO 01/09/25 08:59 300 mg DAILY ELVIN Administration Glucagon 1 mg 12/10/24 06:01 Glucagon Inj 1 Mg Vial IM Q15MIN PRN BG <70, and no IV access Hydromorphone HCl 4 mg 12/10/24 10:20 12/10/24 11:01 Hydromorphone Hcl 2 Mg Tablet PO 12/15/24 03:21 4 mg Q4H PRN Administration PAIN SEVERE 7-10 Insulin Human Lispro 0 unit 12/10/24 07:30 12/10/24 12:18 Insulin Lispro (Admelog) 1 Unit/0.01 Ml Unit SC 01/09/25 07:29 1 unit AC ELVIN Administration Protocol Levothyroxine Sodium 88 mcg 12/10/24 06:00 12/10/24 05:49 Levothyroxine Sodium 25 Mcg Tablet PO 01/09/25 05:59 Not Given ACBR ELVIN Lorazepam 1 mg 12/10/24 18:00 Lorazepam 0.5 Mg Tablet PO 12/15/24 17:59 Q6HR ELVIN Mirtazapine 7.5 mg 12/10/24 21:00 Mirtazapine 15 Mg Tablet PO 01/09/25 20:59 HS ELVIN Naloxegol 25 mg 12/10/24 09:42 Naloxegol Oxalate 25 Mg Tablet (Non-Formulary) PO 01/09/25 09:41 HS ELVIN Ondansetron HCl 4 mg 12/10/24 03:08 Ondansetron Inj 2 Mg/Ml Inj 2 Ml IVP 01/09/25 03:07 Q6H PRN NAUSEA OR VOMITING Protocol Pantoprazole Sodium 40 mg 12/10/24 09:00 12/10/24 09:13 Pantoprazole 40 Mg Tablet PO 01/09/25 08:59 40 mg QDAY ELVIN Administration Sacubitril/Valsartan 1 tab 12/10/24 09:00 12/10/24 09:12 Sacubitril 24 Mg/Valsartan 26 Mg Tablet PO 01/09/25 08:59 1 tab BID ELVIN Administration Tamsulosin HCl 0.4 mg 12/10/24 03:30 12/10/24 03:38 Tamsulosin Hcl 0.4 Mg Capsule PO 01/09/25 03:29 Not Given HS ELVIN Plan Mr. Barnes is a 54-year-old patient with past medical history significant for patient for hypertension, non-insulin dependent diabetes mellitus, hypothyroidism, A-fib on Eliquis, cardiomyopathy s/p ICD in place, HFrEF? (EF 30%) on 2L home O2, pulmonary HTN type II ,who presented to the ED on 12/09/2024 for worsening chest pain, SOB requiring 3 L of O2 via NC (a liter above his baseline), bilateral lower extremity edema, and more than 20 pound weight gain during the previous week. Patient also had paroxysmal nocturnal dyspnea and orthopnea requiring multiple pillows to sleep. Patient was well controlled until recently when he started to develop progressive shortness of breath for the past week with associated chest pressure and increased abdominal girth. Patient was admitted for acute decompensated heart failure exacerbation. # Acute decompensation of previously stable heart failure #HFrEF (EF 30%) S/P ICD #Nonischemic cardiomyopathy #Hx Pulmonary hypertension type II Patient initially presented with worsening SOB on 3L NC. On physical examination noted abdominal and scrotal swelling,+2 edema BLE.? TTE done at Dr. Jak Castaneda's office on 12/23/2023 revealed LVEF 30%. CXR showing vascular congestion. BNP 485.? Troponin < 0.002 In ED received lasix 40mg x2 Allergy to aldactone Patient is a client of Dr. Castaneda's clinic -resume home GDMT: Entresto 1 tab BID, Farxiga 10 mg, Coreg 25 mg p.o. BID, eplerenone 50mg qday -IV Bumex 2 mg TID? -Strict ins and outs -Diet: 2g sodium restriction -Daily weights -Fluid restriction 1500 ml - Walker catheter -Supplemental O2 as needed, wean as tolerated - Keep K > 4 and Mg > 2 - Plant Senior Manager Dr. Castaneda consulted, appreciate recommendations ?Echo ordered ?Added metolazone 5mg daily #Atrial fibrillation, rate controlled EKG revealed paced ventricular rhythm no ST changes, rate of 85 and QTc of 550 Home medication : Coreg 25 Mg BID, amiodarone 200 Mg twice daily, Eliquis 5 Mg twice daily CHADsVASc score 3 ; 3.2% risk of stroke/ TIA/systemic embolism HASBLED score 2 ; Moderate risk of major bleeding -Currently rate well-controlled with Coreg 25 mg, rhythm control amiodarone 200 mg p.o. BID daily, anticoagulant Eliquis 5 mg - resumed home medication as mentioned above - Continue to monitor on telemetry - Continue amiodarone as taken at home 100mg QID #Constipation Patient reports abdominal fullness and pressure with last BM 2 days ago - Resumed home laxative Movantik #Hypothyroidism - Resume home levothyroxine 88 mcg ACBR #Hypertension - Resume home medication as above # Hyperlipidemia Last lipid panel showed triglyceride 192, cholesterol 152, LDL 58, HDL 56 -Resume home medication atorvastatin 40 mg QDAY #Kxj-sytsxam-wnyknawnr type 2 diabetes On admission glucose 182 and A1c 8. Home Farxiga - Resume home Farxiga 10 mg po -Bedside glucose checks ACHS - Started insulin sliding scale #Chronic pain syndrome #OA of Rt Elbow - Resume home gabapentin 300 mg Qday? - Dilaudid 4 mg p.o. Q6H PRN? for pain control # Chronic normocytic anemia On admission hemoglobin 10.4, hematocrit 32.1.? For last 2 years H&H has been low but stable? Not actively bleeding -Continue to monitor H&H #Hx of anxiety #Hx Depression X-ray showed Mild elbow osteoarthritis. 6 mm posterior bony olecranon spur. -Topical diclofenac 4g apply to painful joint Q4h PRN -resume? home mirtazapine 7.5 mg p.o.hs, -resume home? Ativan 0.5 mg Q6h for severe anxiety Hospital management: Lines: peripheral IV Diet: Cardiac Bowel: Senna GI prophylaxis: Protonix 40 mg DVT prophylaxis: Eliquis 5mg Disposition: tele acute CHF exacerbation CODE STATUS: Full code This case was discussed with my attending physician, Dr. Purcell, and senior resident, Dr Gustabo Hernandez. Milse Rider DO PGY I Attending Provider Attestation/Addendum Teresa Au DO, attest that I was physically present for the olson portions of the service and evaluated the patient with the resident and I reviewed and discussed the case with the resident and agree with the resident's findings and plans of care as documented above Patient seen and evaluated this AM. Patient reports being compliant with his medications at home. However, he noted that he had gained about 20lbs in the past week. He reports dyspnea on exertion, LE edema and worsening abdominal bloating. Patient is currently on bumex 2mg IV TID. Will continue with IV diuresis as he continues to have b/l edema that is nonpitting. He otherwise denies any chest pain. He is also currently requiring 3L/NC.
--- NOTE | 2024-12-10 13:06 | ECHO_ITS ---
Transthoracic Echo Report Ht (in): 75 Wt (lb): 324 Exam Location: Echo Lab Status: Inpatient Shear Helper: Clementine Dobbins Indications: Procedure Performed: BP: 110 / 57 HR: 60 Technical Quality: Technically difficult study MEASUREMENTS (Male / Female) Normal Values 2D ECHO LV Diastolic Diameter PLAX 6.4 cm 4.2 - 5.9 / 3.9 - 5.3 cm LV Systolic Diameter PLAX 5.5 cm IVS Diastolic Thickness 0.8 cm 0.6 - 1.0 / 0.6 - 0.9 cm LVPW Diastolic Thickness 1.1 cm 0.6 - 1.0 / 0.6 - 0.9 cm LV Relative Wall Thickness 0.3 LVOT Diameter 2.4 cm Aortic Root Diameter 3.5 cm LA Systolic Diameter LX 3.3 cm 3.0 - 4.0 / 2.7 - 3.8 cm Ascending Aorta Diameter 3.6 cm M-MODE Aortic Root Diameter MM 3.0 cm LA Systolic Diameter MM 3.4 cm LA Ao Ratio MM 1.1 AV Cusp Separation MM 2.3 cm DOPPLER AV Peak Velocity 148.0 cm/s AV Peak Gradient 8.8 mmHg AV Mean Gradient 5.0 mmHg AV Velocity Time Integral 37.2 cm LVOT Peak Velocity 106.0 cm/s LVOT Peak Gradient 4.5 mmHg LVOT Velocity Time Integral 25.3 cm LVOT Cardiac Index 2412.9 cm?/min?m? AV Area Cont Eq vti 3.1 cm? AV Area Cont Eq pk 3.2 cm? MV Area PHT 5.6 cm? Mitral E Point Velocity 67.9 cm/s Mitral A Point Velocity 61.1 cm/s Mitral E to A Ratio 1.1 LV E' Lateral Velocity 14.7 cm/s Mitral E to LV E' Lateral Ratio 4.6 LV E' Septal Velocity 7.7 cm/s Mitral E to LV E' Septal Ratio 8.8 TR Peak Velocity 252.5 cm/s TR Peak Gradient 25.5 mmHg PV Peak Velocity 80.1 cm/s PV Peak Gradient 2.6 mmHg FINDINGS Left Ventricle The left ventricle is dilated with dilated cardiomyopathy severe global hypokinesis ejection fraction of approximately 25 to 30%. Right Ventricle The right ventricular systolic function is moderately decreased. The right ventricular size is mildy increased. Left Atrium The left atrium is normal by two-dimensional, color flow and Doppler imaging with no structural abnormalities, no thrombus formation present. Right Atrium The right atrium is normal by two-dimensional imaging, color flow and Doppler imaging with no structural abnormalities, no thrombus formation present. Atrial Septum The interatrial septum appears normal with no evidence of a shunt. Aorta The aorta is normal by two-dimensional, color flow and Doppler interrogation. Mitral Valve The mitral valve is normal by two-dimensional, color flow and Doppler interrogation. There is no significant mitral valve regurgitation, stenosis or prolapse. Aortic Valve The aortic valve is trileaflet and normal by two-dimensional, color flow and Doppler interrogation. There is no significant aortic valve regurgitation. Tricuspid Valve The tricuspid valve is normal by two-dimensional, color flow and Doppler interrogation. There is mild tricuspid valve regurgitation. Unable to estimate the right ventricular systolic pressure. Pulmonic Valve The pulmonic valve is not well visualized. There is no significant pulmonic valve regurgitation. Vessels Inferior vena cava not well visualized. Pericardium The pericardium is normal by two-dimensional imaging. There is no significant pericardial effusion. CONCLUSIONS Indication: CHF exacerbation Dilated cardiomyopathy with severe left ventricle systolic dysfunction ejection fraction 25 to 30%. RV systolic function is moderately decreased. The right ventricular size is mildy increased. Mild to moderate tricuspid regurgitation with evidence of normal PA pressure approximately 35 mmHg. Evidence of pacemaker leads in the right ventricle. Kandis Hutchinson (Electronically Signed) Final Date: 12 December 2024 17:34
[2024-12-10] MEDS: NALOXEGOL OXALATE 25 MG TABLET (NON-FORMULARY) PO (13:07)
[2024-12-10] MEDS: ACETAMINOPHEN 325 MG TABLET 650 MG PO ×2 (13:19→22:07)
[2024-12-10] MEDS: ATORVASTATIN CALCIUM 20 MG TABLET 40 MG PO (21:04)
[2024-12-10] MEDS: MIRTAZAPINE 15 MG TABLET 7.5 MG PO (21:05)
[2024-12-10] MEDS: TAMSULOSIN HCL 0.4 MG CAPSULE PO (21:05)
[2024-12-10] MEDS: DICLOFENAC 1% TOP GEL 100 GM TUBE TOP (23:56)
[2024-12-11] VITALS (19 sets, daily range): BP systolic 110–140; BP diastolic 57–95; PULSE 49–84; RESP 12–17; TEMP 35.9–36.4; O2SAT 96–100
[2024-12-11] MEDS: HYDROMORPHONE HCL 2 MG TABLET 4 MG PO ×6 (01:03→22:14)
[2024-12-11] MEDS: ACETAMINOPHEN 325 MG TABLET 650 MG PO ×2 (04:21→11:16)
[2024-12-11 05:33] LABS: Basophils # (Auto) 0.1 Thou/mm3 (0.0-0.2); Basophils % (Auto) 1 % (0-2.5); Eosinophils # (Auto) 0.1 Thou/mm3 (0.0-0.5); Eosinophils % (Auto) 1 % (0-10); Hematocrit 37.0 % (41.0-53.0); Hemoglobin 12.2 g/dL (13.5-16.0); Immature Granulocytes Auto 0.03 Thou/mm3 (0.00-0.00); Lymphocytes # (Auto) 2.2 Thou/mm3 (1.0-4.8); Lymphocytes % (Auto) 20 % (10-50); Mean Corpuscular HGB Conc 33.0 g/dl (31.0-37.0); Mean Corpuscular Hemoglobin 29.7 pg (25.0-35.0); Mean Corpuscular Volume 90 fL (80-100); Monocytes # (Auto) 1.0 Thou/mm3 (0.0-0.8); Monocytes % (Auto) 9 % (0-12); Neutrophils # (Auto) 7.5 Thou/mm3 (1.8-7.7); Neutrophils % (Auto) 69 % (37-80); Nucleated Red Blood Cell # 0.00 Thou/mm3 (0.00-0.00); Nucleated Red Blood Cell % 0 /100 WBC (0); Platelet Count 220 Thou/mm3 (140-440); RDW Standard Deviation 45.1 fL (35.1-43.9); Red Blood Count 4.11 Miln/mm3 (4.50-5.90); White Blood Count 10.9 Thou/mm3 (3.8-10.6)
[2024-12-11] MEDS: AMIODARONE HCL 200 MG TABLET 100 MG PO ×4 (05:38→20:46)
[2024-12-11] MEDS: DICLOFENAC 1% TOP GEL 100 GM TUBE TOP ×2 (05:40→20:43)
[2024-12-11] MEDS: LEVOTHYROXINE SODIUM 88 MCG TABLET PO (06:07)
[2024-12-11 06:08] LABS: Alanine Aminotransferase 38 U/L (10-49); Albumin, Serum 4.8 gm/dL (3.5-5.0); Albumin/Globulin Ratio 1.6 (1.2-2.2); Alkaline Phosphatase 92 U/L (46-116); Anion Gap 11 (7-16); Aspartate Amino Transferase 30 U/L (0-34); BUN/Creatinine Ratio 10 Ratio (12-20); Bilirubin,Total 0.9 mg/dL (0.3-1.2); Blood Urea Nitrogen 15 mg/dL (9-23); Calcium 10.6 mg/dL (8.3-10.6); Calcium (Corrected) 10.6 mg/dL (8.5-10.1); Carbon Dioxide 37.9 mMol/L (20.0-31.0); Chloride 88 mMol/L (98-107); Creatinine (Component) 1.5 mg/dL (0.6-1.3); Estimated Creatinine Clearance 86.0 mL/min (>60); Globulin 3.0 gm/dL (2.3-3.5); Glucose 211 mg/dL (74-106); Magnesium 2.3 mg/dL (1.6-2.6); Osmolality,Calculated 280 (275-295); Phosphorous 4.4 mg/dL (2.4-5.1); Potassium 3.5 mMol/L (3.4-5.1); Sodium 137 mMol/L (136-145); Total Protein 7.8 gm/dL (5.7-8.2); eGFR 55 See Note
[2024-12-11] MEDS: INSULIN LISPRO (AdmeLOG) 1 UNIT/0.01 ML UNIT SC ×4 (07:20→21:06)
[2024-12-11] MEDS: DAPAGLIFLOZIN PROPANEDIOL 5 MG TABLET 10 MG PO (09:04)
[2024-12-11] MEDS: PANTOPRAZOLE 40 MG TABLET PO (09:04)
[2024-12-11] MEDS: APIXABAN 2.5 MG TABLET 5 MG PO ×2 (09:04→20:44)
[2024-12-11] MEDS: GABAPENTIN 300 MG CAPSULE PO (09:04)
[2024-12-11] MEDS: BUMETANIDE INJ 0.25 MG/ML VIAL 4 ML 2 MG IVP ×2 (09:05→20:50)
[2024-12-11] MEDS: EPLERENONE 50 MG TABLET PO (09:12)
[2024-12-11] MEDS: LACTULOSE SYRUP 20 GM/30 ML UDC PO (10:27)
[2024-12-11] MEDS: MULTIVITAMINS TABLET 1 TAB PO (11:10)
--- NOTE | 2024-12-11 13:16 | ESPR_ITS ---
<Statement entered by Moses Montejo MD - 12/11/24 21:21> No acute overnight events. Seen and examined at bedside and patient states that pressure in abdomen has improved. Noted to have injured his right elbow yesterday but pain currently well-controlled with current regimen. Touch base with cardiology and recommended to decrease Bumex to 2 mg twice daily. Will diurese for another day and reevaluate tomorrow. Patient able to diurese total of approximately 5.7 L in 24 hours. Anticipate discharge within next 24 to 48 hours. ----- Note reviewed and agree with care plan as documented. Please refer to the note below for further details. Plan discussed with attending physician Dr. Binh Montejo MD PGY-2 Internal Medicine Documentation for date of: 12/11/24 Subjective Subjective Interval history: Patient was seen and examined at bedside. No acute events took place overnight. Patient reports improvement in symptoms including pressure relief in his abdomen. Patient states that he injured his right elbow when elevating himself up his bed. While imaging was negative for dislocation or fracture, patient reports that diclofenac gel, Tylenol helped with the pain. Additionally reports that while he is oxygen requirement may seem low during times that he rests lying in bed, they are an inaccurate picture of his true oxygen demands which are typically higher when he stands and walks about. He insists that his O2 flow does not go lower than 2 L. Exam Vital Signs Temp Pulse Resp BP Pulse Ox O2 Del Method O2 Flow Rate 97.5 F 65 12 122/95 H 100 Nasal Cannula 2 12/11/24 12:12/11/24 12:12/11/24 12:12/11/24 12:12/11/24 12:12/11/24 12:12/11/24 12:00 Narrative Exam General: Alert, no acute distress.Conversational and obese habitus Skin: Warm, dry, intact. No rash or ecchymoses. Head: Normocephalic, atraumatic. Eye: Normal conjunctiva, PERRL. Throat: Oral mucosa moist. No obvious lesions in oropharynx. Cardiovascular: Regular rate and rhythm, no murmur, +S1/S2. Tele devise shows NSR, HR 76. Respiratory: Lungs are clear to auscultation, respirations unlabored, mild rhonchi. No wheezing. Gastrointestinal: Transverse surgical scar on the left upper edge of the abdomen, and a morphine pump at the left hypochondriac area. Abdomen hard, nontender, distended. Percussion dull. No guarding or rebound tenderness. Extremities: BLE pitting edema from the dorsum of both feet up to the level of the knees, 1+ Rt and 2+ Lt. No cyanosis, no clubbing. ; scrotal edema Neuro: Alert and oriented x3.No focal deficits observed. Conversant, moving all extremities. No overt cerebellar signs/incoordination. Psychiatric: Cooperative, appropriate affect Objective Labs 12/12/24 05:24 12/12/24 05:24 Labs: Laboratory Results - last 24 hr 12/11/24 05:14 WBC 10.9 H D RBC 4.11 L Hgb 12.2 L Hct 37.0 L MCV 90 MCH 29.7 MCHC 33.0 RDW Std Deviation 45.1 H Plt Count 220 D Neut % (Auto) 69 Lymph % (Auto) 20 [place] % (Auto) 9 Eos % (Auto) 1 Baso % (Auto) 1 Neut # (Auto) 7.5 Lymph # (Auto) 2.2 [place] # (Auto) 1.0 H Eos # (Auto) 0.1 Baso # (Auto) 0.1 Immature Gran # (Auto) 0.03 H Absolute Nucleated RBC 0.00 Immature Gran % 0 Nucleated RBC % 0 Sodium 137 Potassium 3.5 Chloride 88 L Carbon Dioxide 37.9 H Anion Gap 11 BUN 15 Creatinine 1.5 H Estim Creat Clear Calc 86.0 eGFR 55 L BUN/Creatinine Ratio 10 L Glucose 211 H Calculated Osmolality 280 Calcium 10.6 Corrected Calcium 10.6 H Phosphorus 4.4 Magnesium 2.3 Total Bilirubin 0.9 AST 30 ALT 38 Alkaline Phosphatase 92 D Total Protein 7.8 Albumin 4.8 D Globulin 3.0 Albumin/Globulin Ratio 1.6 Quality Measures Quality Measures none Assessment & Plan Assessment Current Active Medications: Generic Name Dose Route Start Last Admin Trade Name Freq PRN Reason Stop Dose Admin Acetaminophen 650 mg 12/10/24 10:22 12/11/24 04:21 Acetaminophen 325 Mg Tablet PO 01/09/25 03:07 650 mg Q6H PRN Administration Fever >100.4 Amiodarone HCl 100 mg 12/10/24 09:15 12/11/24 11:15 Amiodarone Hcl 200 Mg Tablet PO 01/09/25 09:14 100 mg QID ELVIN Administration Apixaban 5 mg 12/10/24 09:00 12/11/24 09:04 Apixaban 2.5 Mg Tablet PO 01/09/25 08:59 5 mg BID ELVIN Administration Atorvastatin Calcium 40 mg 12/10/24 21:00 12/10/24 21:04 Atorvastatin Calcium 20 Mg Tablet PO 01/09/25 20:59 40 mg HS ELVIN Administration Bumetanide 2 mg 12/11/24 21:00 Bumetanide Inj 0.25 Mg/Ml Vial 4 Ml IVP 01/10/25 20:59 BID ELVIN Carvedilol 25 mg 12/10/24 09:00 12/11/24 09:04 Carvedilol 12.5 Mg Tablet PO 01/09/25 08:59 25 mg BID ELVIN Administration Eplerenone 50 Mg 0 ea 12/10/24 09:00 12/11/24 09:12 Tablet PO 01/09/25 08:59 1 tablet QDAY ELVIN Administration Dapagliflozin 10 mg 12/10/24 09:00 12/11/24 09:04 Dapagliflozin Propanediol 5 Mg Tablet PO 01/09/25 08:59 10 mg QAM ELVIN Administration Dextrose 25 ml 12/10/24 06:01 Dextrose 50%-Water Inj 50 Ml Syringe IV 01/09/25 06:00 Q15MIN PRN BG 50-70 responsive npo pt Dextrose 50 ml 12/10/24 06:01 Dextrose 50%-Water Inj 50 Ml Syringe IV 01/09/25 06:00 Q15MIN PRN BG <50 OR BG <70 & pt unresponsive Diclofenac Sodium 4 gm 12/10/24 15:13 12/11/24 05:40 Diclofenac 1% Top Gel 100 Gm Tube TOP 01/09/25 17:59 4 gm Q6HR PRN Administration elbow pain Gabapentin 300 mg 12/10/24 09:00 12/11/24 09:04 Gabapentin 300 Mg Capsule PO 01/09/25 08:59 300 mg DAILY ELVIN Administration Glucagon 1 mg 12/10/24 06:01 Glucagon Inj 1 Mg Vial IM Q15MIN PRN BG <70, and no IV access Hydromorphone HCl 4 mg 12/10/24 10:20 12/11/24 09:43 Hydromorphone Hcl 2 Mg Tablet PO 12/15/24 03:21 4 mg Q4H PRN Administration PAIN SEVERE 7-10 Insulin Human Lispro 0 unit 12/11/24 07:53 12/11/24 11:24 Insulin Lispro (Admelog) 1 Unit/0.01 Ml Unit SC 01/10/25 07:29 2 unit ACHS ELVIN Administration Protocol Lactulose 20 gm 12/11/24 10:00 12/11/24 10:27 Lactulose Syrup 20 Gm/30 Ml Udc PO 01/10/25 09:59 20 gm DAILY ELVIN Administration Protocol Levothyroxine Sodium 88 mcg 12/11/24 06:00 12/11/24 06:07 Levothyroxine Sodium 88 Mcg Tablet PO 01/10/25 05:59 88 mcg ACBR ELVIN Administration Lorazepam 1 mg 12/10/24 18:00 12/11/24 12:10 Lorazepam 0.5 Mg Tablet PO 12/15/24 17:59 1 mg Q6HR ELVIN Administration Metolazone 5 mg 12/10/24 13:15 12/11/24 09:02 Metolazone 2.5 Mg Tablet PO 01/09/25 13:14 5 mg QDAY ELVIN Administration Mirtazapine 7.5 mg 12/10/24 21:00 12/10/24 21:05 Mirtazapine 15 Mg Tablet PO 01/09/25 20:59 7.5 mg HS ELVIN Administration Multivitamins 1 tab 12/11/24 10:45 12/11/24 11:10 Multivitamins Tablet PO 01/10/25 10:44 1 tab QDAY ELVIN Administration Naloxegol 25 mg 12/10/24 09:42 12/10/24 13:07 Naloxegol Oxalate 25 Mg Tablet (Non-Formulary) PO 01/09/25 09:41 25 mg HS ELVIN Administration Ondansetron HCl 4 mg 12/10/24 03:08 Ondansetron Inj 2 Mg/Ml Inj 2 Ml IVP 01/09/25 03:07 Q6H PRN NAUSEA OR VOMITING Protocol Pantoprazole Sodium 40 mg 12/10/24 09:00 12/11/24 09:04 Pantoprazole 40 Mg Tablet PO 01/09/25 08:59 40 mg QDAY ELVIN Administration Potassium Chloride 40 meq 12/11/24 08:00 12/11/24 09:07 Potassium Chloride 20 Meq Tabcr PO 12/12/24 07:59 Not Given BIDWM ELVIN Sacubitril/Valsartan 1 tab 12/10/24 09:00 12/11/24 09:04 Sacubitril 24 Mg/Valsartan 26 Mg Tablet PO 01/09/25 08:59 1 tab BID ELVIN Administration Tamsulosin HCl 0.4 mg 12/10/24 03:30 12/10/24 21:05 Tamsulosin Hcl 0.4 Mg Capsule PO 01/09/25 03:29 0.4 mg HS ELVIN Administration Plan Mr. Barnes is a 54-year-old patient with past medical history significant for patient for hypertension, non-insulin dependent diabetes mellitus, hypothyroidism, A-fib on Eliquis, cardiomyopathy s/p ICD in place, HFrEF? (EF 30%) on 2L home O2, pulmonary HTN type II ,who presented to the ED on 12/09/2024 for worsening chest pain, SOB requiring 3 L of O2 via NC (a liter above his baseline), bilateral lower extremity edema, and more than 20 pound weight gain during the previous week. Patient also had paroxysmal nocturnal dyspnea and orthopnea requiring multiple pillows to sleep. Patient was well controlled until recently when he started to develop progressive shortness of breath for the past week with associated chest pressure and increased abdominal girth. Patient was admitted for acute decompensated heart failure exacerbation. Patient was resumed on home GDMT with Entresto twice daily, Farxiga 10 mg, Coreg 25 mg twice daily, eplerenone 50 mg daily as well as aggressive diuresis with Bumex 2 mg 3 times daily. By 12/11, Patient had lost 6.1 L in cumulative CARISSA. On 12/11 alone, total urine output was 5.7 L indicating overdiuresis on current diuretic regiment. Bumex was reduced to 2 mg twice daily. Morning glucose elevated at 201 while patient had been on SSI the day before; mireya SSI by 1 step (2). # Acute decompensation of previously stable heart failure #HFrEF (EF 30%) S/P ICD #Nonischemic cardiomyopathy #Hx Pulmonary hypertension type II Patient initially presented with worsening SOB on 3L NC. On physical examination noted abdominal and scrotal swelling,+2 edema BLE.? TTE done at Dr. Jak Castaneda's office on 12/23/2023 revealed LVEF 30%. CXR showing vascular congestion. BNP 485.? Troponin < 0.002 In ED received lasix 40mg x2 Allergy to aldactone Patient is a client of Dr. Castaneda's clinic ? By 12/11, Patient had lost 6.1 L in cumulative CARISSA. On 12/11 alone, total urine output was 5.7 L indicating overdiuresis on current diuretic regiment -resume home GDMT: Entresto 1 tab BID, Farxiga 10 mg, Coreg 25 mg p.o. BID, eplerenone 50mg qday - Reduced IV Bumex to 2 mg twice daily -Strict ins and outs -Diet: 2g sodium restriction -Daily weights -Fluid restriction 1500 ml - Walker catheter -Supplemental O2 as needed, wean as tolerated - Keep K > 4 and Mg > 2 - Burr Bench Operator Dr. Castaneda consulted, appreciate recommendations ?Echo ordered ?Added metolazone 5mg daily #Atrial fibrillation, rate controlled EKG revealed paced ventricular rhythm no ST changes, rate of 85 and QTc of 550 Home medication : Coreg 25 Mg BID, amiodarone 200 Mg twice daily, Eliquis 5 Mg twice daily CHADsVASc score 3 ; 3.2% risk of stroke/ TIA/systemic embolism HASBLED score 2 ; Moderate risk of major bleeding -Currently rate well-controlled with Coreg 25 mg, rhythm control amiodarone 200 mg p.o. BID daily, anticoagulant Eliquis 5 mg - resumed home medication as mentioned above - Continue to monitor on telemetry - Continue amiodarone as taken at home 100mg QID #Constipation Patient reports abdominal fullness and pressure with last BM 2 days ago - Resumed home laxative Movantik p.o. 25 mg at bedtime ? Lactulose p.o. 20 mg syrup daily #Hypothyroidism - Resumed home levothyroxine 88 mcg ACBR #Hypertension - Resume home medication as above # Hyperlipidemia Last lipid panel showed triglyceride 192, cholesterol 152, LDL 58, HDL 56 -Resume home medication atorvastatin 40 mg QDAY #Dsa-jhrysru-[id number] type 2 diabetes On admission glucose 182 and A1c 8. Home Farxiga Bedside morning glucose was 201 on 12/11 - Resume home Farxiga 10 mg po - Bedside glucose checks ACHS - Mireya SSI by one step (2) #Chronic pain syndrome #OA of Rt Elbow - Resume home gabapentin 300 mg Qday? - Dilaudid 4 mg p.o. Q6H PRN? for pain control # Chronic normocytic anemia On admission hemoglobin 10.4, hematocrit 32.1.? For last 2 years H&H has been low but stable? Not actively bleeding -Continue to monitor H&H #Hx of anxiety #Hx Depression X-ray showed Mild elbow osteoarthritis. 6 mm posterior bony olecranon spur. -Topical diclofenac 4g apply to painful joint Q4h PRN -resume? home mirtazapine 7.5 mg p.o.hs, -resume home? Ativan 0.5 mg Q6h for severe anxiety Hospital management: Lines: peripheral IV Diet: Cardiac Bowel: Senna GI prophylaxis: Protonix 40 mg DVT prophylaxis: Eliquis 5mg Disposition: tele acute CHF exacerbation CODE STATUS: Full code This case was discussed with my attending physician, Dr. Purcell, and senior resident, Dr Gustabo Hernandez. Miles Rider DO PGY I Attending Provider Attestation/Addendum I, Teresa Purcell DO, attest that I was physically present for the olson portions of the service and evaluated the patient with the resident and I reviewed and discussed the case with the resident and agree with the resident's findings and plans of care as documented above Patient seen and evaluated this AM. No acute events overnight. b/l LE edema much improved with Bumex, will decrease interval from TID to BID. He continues to have 2+ b/l Pitting edema. Patient currently on 2L/NC. Will continue with IV diuresis and f/u with cardiology recommendations
--- NOTE | 2024-12-11 14:32 | PC.SS ---
rounding note: Patient continues to be on 02. Patient verbalized that he does have 02 at home. D/c for Wednesday home.
[2024-12-11] MEDS: NALOXEGOL OXALATE 25 MG TABLET (NON-FORMULARY) PO (20:45)
[2024-12-11] MEDS: TAMSULOSIN HCL 0.4 MG CAPSULE PO (20:45)
[2024-12-11] MEDS: ATORVASTATIN CALCIUM 20 MG TABLET 40 MG PO (20:45)
[2024-12-11] MEDS: MIRTAZAPINE 15 MG TABLET 7.5 MG PO (20:46)
[2024-12-11] MEDS: ONDANSETRON INJ 2 MG/ML INJ 2 ML 4 MG IVP (22:14)
--- NOTE | 2024-12-11 22:20 | ESPR_ITS ---
<Statement entered by Tamara Castaneda MD - 12/16/24 14:31> I personally evaluated examined this patient was admitted to hospital acute decompensated systolic heart failure ejection fraction only 25 to 30% range came to the hospital diuretics being ineffective not improving with combination of bumetanide and metolazone diuresing aggressively feeling better does not complain of chest pain. Evaluated patient with resident physician PGY 2 Dr. Graves agree with the treatment plan recommendation as documented. Documentation for date of: 12/11/24 Subjective Subjective Interval history: Patient seen today at the bedside found awake, alert, orientedx3. No overnight events reported. Vital signs stable at this time. No active complaints at this time. States improvement in shortness of breath, abdominal girth improved and lower extremity edema improving compared to previous examination. Patient is responding well to Bumex IV and metolazone with a net negative of 4.5L, creatinine increased very slightly adjusted Bumex to BID. Likely 1- 2more days of IV diuresis prior to discharge. Exam Vital Signs Temp Pulse Resp BP Pulse Ox O2 Del Method O2 Flow Rate 96.6 F L 78 12 132/78 H 96 Nasal Cannula 3 12/11/24 20:00 12/11/24 20:50 12/11/24 20:00 12/11/24 20:50 12/11/24 20:00 12/11/24 20:00 12/11/24 20:00 Narrative Exam Physical Exam GENERAL: NAD, AAOx3 HEENT: Moist mucosa. Eyes open, symmetrical, & clear CARDIO: Heart RRR, no obvious murmurs PULM: No noted coughing/dyspnea CTA B/L, no R/W/R GI: Abdomen distended, no pain on palpation. BSx4 SKIN/MSK/EXT: bilateral lower extremity edema-improving, right scrotal swelling, no pain on palpation. Pedal pulses present B/L NEURO: AAOx3, no focal neuro deficits, able to move all 4 extremities Objective Labs 12/11/24 05:14 12/11/24 05:14 Labs: Laboratory Results - last 24 hr 12/11/24 05:14 WBC 10.9 H D RBC 4.11 L Hgb 12.2 L Hct 37.0 L MCV 90 MCH 29.7 MCHC 33.0 RDW Std Deviation 45.1 H Plt Count 220 D Neut % (Auto) 69 Lymph % (Auto) 20 [place] % (Auto) 9 Eos % (Auto) 1 Baso % (Auto) 1 Neut # (Auto) 7.5 Lymph # (Auto) 2.2 [place] # (Auto) 1.0 H Eos # (Auto) 0.1 Baso # (Auto) 0.1 Immature Gran # (Auto) 0.03 H Absolute Nucleated RBC 0.00 Immature Gran % 0 Nucleated RBC % 0 Sodium 137 Potassium 3.5 Chloride 88 L Carbon Dioxide 37.9 H Anion Gap 11 BUN 15 Creatinine 1.5 H Estim Creat Clear Calc 86.0 eGFR 55 L BUN/Creatinine Ratio 10 L Glucose 211 H Calculated Osmolality 280 Calcium 10.6 Corrected Calcium 10.6 H Phosphorus 4.4 Magnesium 2.3 Total Bilirubin 0.9 AST 30 ALT 38 Alkaline Phosphatase 92 D Total Protein 7.8 Albumin 4.8 D Globulin 3.0 Albumin/Globulin Ratio 1.6 Quality Measures Quality Measures none Assessment & Plan Assessment Current Active Medications: Generic Name Dose Route Start Last Admin Trade Name Freq PRN Reason Stop Dose Admin Acetaminophen 650 mg 12/10/24 10:22 12/11/24 04:21 Acetaminophen 325 Mg Tablet PO 01/09/25 03:07 650 mg Q6H PRN Administration Fever >100.4 Amiodarone HCl 100 mg 12/10/24 09:15 12/11/24 20:46 Amiodarone Hcl 200 Mg Tablet PO 01/09/25 09:14 100 mg QID ELVIN Administration Apixaban 5 mg 12/10/24 09:00 12/11/24 20:44 Apixaban 2.5 Mg Tablet PO 01/09/25 08:59 5 mg BID ELVIN Administration Atorvastatin Calcium 40 mg 12/10/24 21:00 12/11/24 20:45 Atorvastatin Calcium 20 Mg Tablet PO 01/09/25 20:59 40 mg HS ELVIN Administration Bumetanide 2 mg 12/11/24 21:00 12/11/24 20:50 Bumetanide Inj 0.25 Mg/Ml Vial 4 Ml IVP 01/10/25 20:59 2 mg BID ELVIN Administration Carvedilol 25 mg 12/10/24 09:00 12/11/24 20:45 Carvedilol 12.5 Mg Tablet PO 01/09/25 08:59 25 mg BID ELVIN Administration Eplerenone 50 Mg 0 ea 12/10/24 09:00 12/11/24 09:12 Tablet PO 01/09/25 08:59 1 tablet QDAY ELVIN Administration Dapagliflozin 10 mg 12/10/24 09:00 12/11/24 09:04 Dapagliflozin Propanediol 5 Mg Tablet PO 01/09/25 08:59 10 mg QAM ELVIN Administration Dextrose 25 ml 12/10/24 06:01 Dextrose 50%-Water Inj 50 Ml Syringe IV 01/09/25 06:00 Q15MIN PRN BG 50-70 responsive npo pt Dextrose 50 ml 12/10/24 06:01 Dextrose 50%-Water Inj 50 Ml Syringe IV 01/09/25 06:00 Q15MIN PRN BG <50 OR BG <70 & pt unresponsive Diclofenac Sodium 4 gm 12/10/24 15:13 12/11/24 20:43 Diclofenac 1% Top Gel 100 Gm Tube TOP 01/09/25 17:59 4 gm Q6HR PRN Administration elbow pain Protocol Gabapentin 300 mg 12/10/24 09:00 12/11/24 09:04 Gabapentin 300 Mg Capsule PO 01/09/25 08:59 300 mg DAILY ELVIN Administration Glucagon 1 mg 12/10/24 06:01 Glucagon Inj 1 Mg Vial IM Q15MIN PRN BG <70, and no IV access Hydromorphone HCl 4 mg 12/10/24 10:20 12/11/24 22:14 Hydromorphone Hcl 2 Mg Tablet PO 12/15/24 03:21 4 mg Q4H PRN Administration PAIN SEVERE 7-10 Insulin Human Lispro 0 unit 12/11/24 07:53 12/11/24 21:06 Insulin Lispro (Admelog) 1 Unit/0.01 Ml Unit SC 01/10/25 07:29 2 unit ACHS ELVIN Administration Protocol Lactulose 20 gm 12/11/24 10:00 12/11/24 10:27 Lactulose Syrup 20 Gm/30 Ml Udc PO 01/10/25 09:59 20 gm DAILY ELVIN Administration Protocol Levothyroxine Sodium 88 mcg 12/11/24 06:00 12/11/24 06:07 Levothyroxine Sodium 88 Mcg Tablet PO 01/10/25 05:59 88 mcg ACBR ELVIN Administration Lorazepam 1 mg 12/10/24 18:00 12/11/24 17:53 Lorazepam 0.5 Mg Tablet PO 12/15/24 17:59 1 mg Q6HR ELVIN Administration Metolazone 5 mg 12/10/24 13:15 12/11/24 09:02 Metolazone 2.5 Mg Tablet PO 01/09/25 13:14 5 mg QDAY ELVIN Administration Mirtazapine 7.5 mg 12/10/24 21:00 12/11/24 20:46 Mirtazapine 15 Mg Tablet PO 01/09/25 20:59 7.5 mg HS ELVIN Administration Multivitamins 1 tab 12/11/24 10:45 12/11/24 11:10 Multivitamins Tablet PO 01/10/25 10:44 1 tab QDAY ELVIN Administration Naloxegol 25 mg 12/10/24 09:42 12/11/24 20:45 Naloxegol Oxalate 25 Mg Tablet (Non-Formulary) PO 01/09/25 09:41 25 mg HS ELVIN Administration Ondansetron HCl 4 mg 12/10/24 03:08 12/11/24 22:14 Ondansetron Inj 2 Mg/Ml Inj 2 Ml IVP 01/09/25 03:07 4 mg Q6H PRN Administration NAUSEA OR VOMITING Protocol Pantoprazole Sodium 40 mg 12/10/24 09:00 12/11/24 09:04 Pantoprazole 40 Mg Tablet PO 01/09/25 08:59 40 mg QDAY ELVIN Administration Potassium Chloride 40 meq 12/11/24 08:00 12/11/24 17:27 Potassium Chloride 20 Meq Tabcr PO 12/12/24 07:59 Not Given BIDWM ELVIN Sacubitril/Valsartan 1 tab 12/10/24 09:00 12/11/24 20:46 Sacubitril 24 Mg/Valsartan 26 Mg Tablet PO 01/09/25 08:59 1 tab BID ELVIN Administration Tamsulosin HCl 0.4 mg 12/10/24 03:30 12/11/24 20:45 Tamsulosin Hcl 0.4 Mg Capsule PO 01/09/25 03:29 0.4 mg HS ELVIN Administration Plan 54-year-old patient with past medical history significant for patient for hypertension, non-insulin dependent diabetes mellitus, hypothyroidism, A-fib on Eliquis, advanced cardiomyopathy with ICD in place, HFrEF (EF 30%), pulmonary HTN type II ,who presented to the ED on 12/09/2024 with chest pain, SOB and weight gain for the last 7 days #Acute decompensated heart failure exacerbation #Heart failure with reduced ejection fraction [30%] status post ICD #Nonischemic cardiomyopathy #Atrial fibrillation?rate controlled #Hypertension Presented with clinical signs such as shortness of breath, dyspnea on exertion, bilateral leg swelling, CXR: Showing vascular congestion BNP: 485 CHADsVASc score 3 ; 3.2% risk of stroke/ TIA/systemic embolism HASBLED score 2 ; Moderate risk of major bleeding rate controlled with current management ? Echo ordered ? adjusted Bumex 2 mg IV twice times daily ? Eplerenone 50 mg daily ? Added metolazone 5 mg daily ? Continue rest of goal-directed medical therapy such as Entresto, Coreg, ? Continue Eliquis 5 mg twice daily ? Continue amiodarone as taken at home ? Keep K>4, Mg>2 ? Provide oxygen as required ? Strict I's and O's #Hypothyroidism #Hypertension # Hyperlipidemia #[id number] type 2 diabetes #Chronic pain syndrome # Chronic normocytic anemia #Hx of anxiety # HX Depression - as per primary team Case discussed with my attending Dr. Leonel Graves MD PGY-2 Disclaimer: Despite multiple revisions, due to the dictation software being used, the document bellow may not be free of grammatical errors including phonetic/typographic errors. However, this does not deter from our commitment to providing health care in the patient's best interest in mind.
[2024-12-12] VITALS (17 sets, daily range): BP systolic 105–141; BP diastolic 63–80; PULSE 61–81; RESP 10–28; TEMP 35.9–36.5; O2SAT 94–98; BMI 39.2
[2024-12-12] MEDS: AMIODARONE HCL 200 MG TABLET 100 MG PO ×4 (05:07→21:39)
[2024-12-12] MEDS: LEVOTHYROXINE SODIUM 88 MCG TABLET PO (05:09)
[2024-12-12] MEDS: HYDROMORPHONE HCL 2 MG TABLET 4 MG PO ×5 (05:10→22:23)
[2024-12-12 05:51] LABS: Basophils # (Auto) 0.1 Thou/mm3 (0.0-0.2); Basophils % (Auto) 1 % (0-2.5); Eosinophils # (Auto) 0.1 Thou/mm3 (0.0-0.5); Eosinophils % (Auto) 1 % (0-10); Hematocrit 37.8 % (41.0-53.0); Hemoglobin 12.7 g/dL (13.5-16.0); Immature Granulocytes Auto 0.05 Thou/mm3 (0.00-0.00); Lymphocytes # (Auto) 2.3 Thou/mm3 (1.0-4.8); Lymphocytes % (Auto) 22 % (10-50); Mean Corpuscular HGB Conc 33.6 g/dl (31.0-37.0); Mean Corpuscular Hemoglobin 29.4 pg (25.0-35.0); Mean Corpuscular Volume 88 fL (80-100); Monocytes # (Auto) 0.9 Thou/mm3 (0.0-0.8); Monocytes % (Auto) 8 % (0-12); Neutrophils # (Auto) 7.3 Thou/mm3 (1.8-7.7); Neutrophils % (Auto) 68 % (37-80); Nucleated Red Blood Cell # 0.00 Thou/mm3 (0.00-0.00); Nucleated Red Blood Cell % 0 /100 WBC (0); Platelet Count 229 Thou/mm3 (140-440); RDW Standard Deviation 43.4 fL (35.1-43.9); Red Blood Count 4.32 Miln/mm3 (4.50-5.90); White Blood Count 10.6 Thou/mm3 (3.8-10.6)
[2024-12-12 06:12] LABS: Alanine Aminotransferase 30 U/L (10-49); Albumin, Serum 4.8 gm/dL (3.5-5.0); Albumin/Globulin Ratio 1.5 (1.2-2.2); Alkaline Phosphatase 89 U/L (46-116); Anion Gap 12 (7-16); Aspartate Amino Transferase 30 U/L (0-34); BUN/Creatinine Ratio 11 Ratio (12-20); Bilirubin,Total 0.8 mg/dL (0.3-1.2); Blood Urea Nitrogen 18 mg/dL (9-23); Calcium 10.2 mg/dL (8.3-10.6); Calcium (Corrected) 10.2 mg/dL (8.5-10.1); Carbon Dioxide 39.9 mMol/L (20.0-31.0); Chloride 84 mMol/L (98-107); Creatinine (Component) 1.7 mg/dL (0.6-1.3); Estimated Creatinine Clearance 75.6 mL/min (>60); Globulin 3.2 gm/dL (2.3-3.5); Glucose 237 mg/dL (74-106); Magnesium 2.2 mg/dL (1.6-2.6); Osmolality,Calculated 281 (275-295); Phosphorous 5.5 mg/dL (2.4-5.1); Potassium 3.5 mMol/L (3.4-5.1); Sodium 136 mMol/L (136-145); Total Protein 8.0 gm/dL (5.7-8.2); eGFR 47 See Note
[2024-12-12] MEDS: ACETAMINOPHEN 325 MG TABLET 650 MG PO ×2 (06:17→22:23)
[2024-12-12] MEDS: INSULIN LISPRO (AdmeLOG) 1 UNIT/0.01 ML UNIT SC ×4 (07:29→21:36)
[2024-12-12] MEDS: APIXABAN 2.5 MG TABLET 5 MG PO ×2 (08:06→21:39)
[2024-12-12] MEDS: BUMETANIDE INJ 0.25 MG/ML VIAL 4 ML 2 MG IVP ×2 (08:06→20:08)
[2024-12-12] MEDS: MULTIVITAMINS TABLET 1 TAB PO (08:08)
[2024-12-12] MEDS: DAPAGLIFLOZIN PROPANEDIOL 5 MG TABLET 10 MG PO (08:08)
[2024-12-12] MEDS: GABAPENTIN 300 MG CAPSULE PO (08:08)
[2024-12-12] MEDS: LACTULOSE SYRUP 20 GM/30 ML UDC PO (08:08)
[2024-12-12] MEDS: PANTOPRAZOLE 40 MG TABLET PO (08:09)
[2024-12-12] MEDS: EPLERENONE 50 MG TABLET PO (08:14)
[2024-12-12] MEDS: SEVELAMER CARBONATE 800 MG TABLET PO (08:27)
[2024-12-12] MEDS: DICLOFENAC 1% TOP GEL 100 GM TUBE TOP (09:49)
[2024-12-12] MEDS: LIDOCAINE 5% 1 PATCH TOP (12:23)
--- NOTE | 2024-12-12 12:59 | ESPR_ITS ---
<Statement entered by Moses Montejo MD - 12/12/24 14:52> No acute overnight events. Seen and examined at bedside and patient states that his right elbow continues to be painful. Pain appears to be worse in medial aspect and posterior aspect of elbow. Will order sling and have PT evaluate. Otherwise, vital signs stable, CBC unremarkable, and CHEM panel shows worsening renal function of creatinine 1.7 and GFR 47.With cardiology who would like to keep patient at least another day for continued diuresis with Bumex 2 mg IV twice daily; net -5 L in last 24 hours. ----- Note reviewed and agree with care plan as documented. Please refer to the note below for further details. Plan discussed with attending physician Dr. Binh Montejo MD PGY-2 Internal Medicine Documentation for date of: 12/12/24 Subjective Subjective Interval history: Seen and examined at bedside. No overnight events. Phosphorus was 1.5, gave sevelamer 400 mg. Hemoglobin 12.7 stable, creatinine sd to 1.7 from 1.5. Patient still has slight pitting edema in his lower extremities. Will continue diuresis. Patient complaining of intense right elbow pain, ordered topical lidocaine patch. Exam Vital Signs Temp Pulse Resp BP Pulse Ox O2 Del Method O2 Flow Rate 96.9 F 77 19 134/80 H 96 Nasal Cannula 3 12/12/24 08:00 12/12/24 12:18 12/12/24 08:18 12/12/24 12:18 12/12/24 08:18 12/12/24 08:00 12/12/24 08:18 Narrative Exam General: Obese man. Awake and in no acute distress. Conversational and non- toxic appearing. Neurologic: GCS 15. Alert and oriented x3, no gross neurological deficit, and patient able to move all 4 extremities. HEENT: Normocephalic, atraumatic, mucous membranes moist. Pupils reactive to light. Heart: Regular rate and rhythm, normal S1 and S2, no murmurs. Lungs: Clear to auscultation bilaterally with no wheezing or crackles. Abdomen: Soft, nondistended, nontender, positive bowel sounds. No guarding or rebound tenderness. Extremities: 1+ bilateral pitting edema of the lower extremities, right lower extremity bigger than left lower extremity. Skin: Warm. Dry. No rash or ecchymoses. Objective Labs 12/13/24 05:11 12/13/24 05:11 Labs: Laboratory Results - last 24 hr 12/12/24 05:24 WBC 10.6 RBC 4.32 L Hgb 12.7 L Hct 37.8 L MCV 88 MCH 29.4 MCHC 33.6 RDW Std Deviation 43.4 Plt Count 229 Neut % (Auto) 68 Lymph % (Auto) 22 Day % (Auto) 8 Eos % (Auto) 1 Baso % (Auto) 1 Neut # (Auto) 7.3 Lymph # (Auto) 2.3 Day # (Auto) 0.9 H Eos # (Auto) 0.1 Baso # (Auto) 0.1 Immature Gran # (Auto) 0.05 H Absolute Nucleated RBC 0.00 Immature Gran % 1 H Nucleated RBC % 0 Sodium 136 Potassium 3.5 Chloride 84 L Carbon Dioxide 39.9 H Anion Gap 12 BUN 18 Creatinine 1.7 H Estim Creat Clear Calc 75.6 eGFR 47 L BUN/Creatinine Ratio 11 L Glucose 237 H Calculated Osmolality 281 Calcium 10.2 Corrected Calcium 10.2 H Phosphorus 5.5 H Magnesium 2.2 Total Bilirubin 0.8 AST 30 ALT 30 Alkaline Phosphatase 89 Total Protein 8.0 Albumin 4.8 Globulin 3.2 Albumin/Globulin Ratio 1.5 Quality Measures Quality Measures none Assessment & Plan Assessment Current Active Medications: Generic Name Dose Route Start Last Admin Trade Name Freq PRN Reason Stop Dose Admin Acetaminophen 650 mg 12/10/24 10:22 12/12/24 06:17 Acetaminophen 325 Mg Tablet PO 01/09/25 03:07 650 mg Q6H PRN Administration Fever >100.4 Amiodarone HCl 100 mg 12/10/24 09:15 12/12/24 12:18 Amiodarone Hcl 200 Mg Tablet PO 01/09/25 09:14 100 mg QID ELVIN Administration Apixaban 5 mg 12/10/24 09:00 12/12/24 08:06 Apixaban 2.5 Mg Tablet PO 01/09/25 08:59 5 mg BID ELVIN Administration Atorvastatin Calcium 40 mg 12/10/24 21:00 12/11/24 20:45 Atorvastatin Calcium 20 Mg Tablet PO 01/09/25 20:59 40 mg HS ELVIN Administration Bumetanide 2 mg 12/11/24 21:00 12/12/24 08:06 Bumetanide Inj 0.25 Mg/Ml Vial 4 Ml IVP 01/10/25 20:59 2 mg BID ELVIN Administration Carvedilol 25 mg 12/10/24 09:00 12/12/24 08:07 Carvedilol 12.5 Mg Tablet PO 01/09/25 08:59 25 mg BID ELVIN Administration Eplerenone 50 Mg 0 ea 12/10/24 09:00 12/12/24 08:14 Tablet PO 01/09/25 08:59 1 tablet QDAY ELVIN Administration Dapagliflozin 10 mg 12/10/24 09:00 12/12/24 08:08 Dapagliflozin Propanediol 5 Mg Tablet PO 01/09/25 08:59 10 mg QAM ELVIN Administration Dextrose 25 ml 12/10/24 06:01 Dextrose 50%-Water Inj 50 Ml Syringe IV 01/09/25 06:00 Q15MIN PRN BG 50-70 responsive npo pt Dextrose 50 ml 12/10/24 06:01 Dextrose 50%-Water Inj 50 Ml Syringe IV 01/09/25 06:00 Q15MIN PRN BG <50 OR BG <70 & pt unresponsive Diclofenac Sodium 4 gm 12/10/24 15:13 12/12/24 09:49 Diclofenac 1% Top Gel 100 Gm Tube TOP 01/09/25 17:59 4 gm Q6HR PRN Administration elbow pain Protocol Gabapentin 300 mg 12/10/24 09:00 12/12/24 08:08 Gabapentin 300 Mg Capsule PO 01/09/25 08:59 300 mg DAILY ELVIN Administration Glucagon 1 mg 12/10/24 06:01 Glucagon Inj 1 Mg Vial IM Q15MIN PRN BG <70, and no IV access Hydromorphone HCl 4 mg 12/10/24 10:20 12/12/24 09:49 Hydromorphone Hcl 2 Mg Tablet PO 12/15/24 03:21 4 mg Q4H PRN Administration PAIN SEVERE 7-10 Insulin Human Lispro 0 unit 12/11/24 07:53 12/12/24 11:40 Insulin Lispro (Admelog) 1 Unit/0.01 Ml Unit SC 01/10/25 07:29 3 unit ACHS ELVIN Administration Protocol Lactulose 20 gm 12/11/24 10:00 12/12/24 08:08 Lactulose Syrup 20 Gm/30 Ml Udc PO 01/10/25 09:59 20 gm DAILY ELVIN Administration Protocol Levothyroxine Sodium 88 mcg 12/11/24 06:00 12/12/24 05:09 Levothyroxine Sodium 88 Mcg Tablet PO 01/10/25 05:59 88 mcg ACBR ELVIN Administration Lidocaine 1 patch 12/12/24 11:51 12/12/24 12:23 Lidocaine 5% 1 Patch TOP 01/11/25 11:50 1 patch UD PRN Administration PAIN Protocol Lorazepam 1 mg 12/10/24 18:00 12/12/24 12:18 Lorazepam 0.5 Mg Tablet PO 12/15/24 17:59 1 mg Q6HR ELVIN Administration Metolazone 5 mg 12/10/24 13:15 12/12/24 08:08 Metolazone 2.5 Mg Tablet PO 01/09/25 13:14 5 mg QDAY ELVIN Administration Mirtazapine 7.5 mg 12/10/24 21:00 12/11/24 20:46 Mirtazapine 15 Mg Tablet PO 01/09/25 20:59 7.5 mg HS ELVIN Administration Multivitamins 1 tab 12/11/24 10:45 12/12/24 08:08 Multivitamins Tablet PO 01/10/25 10:44 1 tab QDAY ELVIN Administration Naloxegol 25 mg 12/10/24 09:42 12/11/24 20:45 Naloxegol Oxalate 25 Mg Tablet (Non-Formulary) PO 01/09/25 09:41 25 mg HS ELVIN Administration Ondansetron HCl 4 mg 12/10/24 03:08 12/11/24 22:14 Ondansetron Inj 2 Mg/Ml Inj 2 Ml IVP 01/09/25 03:07 4 mg Q6H PRN Administration NAUSEA OR VOMITING Protocol Pantoprazole Sodium 40 mg 12/10/24 09:00 12/12/24 08:09 Pantoprazole 40 Mg Tablet PO 01/09/25 08:59 40 mg QDAY ELVIN Administration Sacubitril/Valsartan 1 tab 12/10/24 09:00 12/12/24 08:09 Sacubitril 24 Mg/Valsartan 26 Mg Tablet PO 01/09/25 08:59 1 tab BID ELVIN Administration Tamsulosin HCl 0.4 mg 12/10/24 03:30 12/11/24 20:45 Tamsulosin Hcl 0.4 Mg Capsule PO 01/09/25 03:29 0.4 mg HS [facility] Administration Plan Mr. Barnes is a 54-year-old patient with past medical history significant for patient for hypertension, non-insulin dependent diabetes mellitus, hypothyroidism, A-fib on Eliquis, cardiomyopathy s/p ICD in place, HFrEF? (EF 30%) on 2L home O2, pulmonary HTN type II ,who presented to the ED on 12/09/2024 for worsening chest pain, SOB requiring 3 L of O2 via NC (a liter above his baseline), bilateral lower extremity edema, and more than 20 pound weight gain during the previous week. Patient also had paroxysmal nocturnal dyspnea and orthopnea requiring multiple pillows to sleep. Patient was well controlled until recently when he started to develop progressive shortness of breath for the past week with associated chest pressure and increased abdominal girth. Patient was admitted for acute decompensated heart failure exacerbation. Patient was resumed on home GDMT with Entresto twice daily, Farxiga 10 mg, Coreg 25 mg twice daily, eplerenone 50 mg daily as well as aggressive diuresis with Bumex. # Acute decompensation of previously stable heart failure #HFrEF (EF 30%) S/P ICD #Nonischemic cardiomyopathy #Hx Pulmonary hypertension type II Patient initially presented with worsening SOB on 3L NC. On physical examination noted abdominal and scrotal swelling,+2 edema BLE.? TTE done at Dr. Jak Castaneda's office on 12/23/2023 revealed LVEF 30%. CXR showing vascular congestion. BNP 485.? Troponin < 0.002 In ED received lasix 40mg x2 Allergy to aldactone Patient is a client of Dr. Castaneda's clinic, cardiology on board Patient is net -3.8 L on 12/12/2024 Plan: - Continue home GDMT: Entresto 1 tab BID, Farxiga 10 mg, Coreg 25 mg p.o. BID, eplerenone 50mg qday - Continue IV Bumex 2 mg twice daily - Strict ins and outs - Diet: 2g sodium restriction - Daily weights - Fluid restriction 1500 ml - Supplemental O2 as needed, wean as tolerated - Keep K > 4 and Mg > 2 - Blister Rust Eradicator Dr. Castaneda consulted, appreciate recommendations ? Echo ordered ? Continue metolazone 5mg daily #Atrial fibrillation, rate controlled EKG revealed paced ventricular rhythm no ST changes, rate of 85 and QTc of 550 Home medication : Coreg 25 Mg BID, amiodarone 200 Mg twice daily, Eliquis 5 Mg twice daily CHADsVASc score 3 ; 3.2% risk of stroke/ TIA/systemic embolism HASBLED score 2 ; Moderate risk of major bleeding Plan: -Currently rate well-controlled with Coreg 25 mg, rhythm control amiodarone 200 mg p.o. BID daily, anticoagulant Eliquis 5 mg - resumed home medication as mentioned above - Continue to monitor on telemetry - Continue amiodarone as taken at home 100mg QID #Constipation Patient reports abdominal fullness and pressure with last BM 2 days ago Plan: - Resumed home laxative Movantik p.o. 25 mg at bedtime ? Lactulose p.o. 20 mg syrup daily #Hypothyroidism TSH 11.65 Plan: - Resumed home levothyroxine 88 mcg ACBR #Hypertension Patient has a established history of hypertension Plan: - Resume home medication as above # Hyperlipidemia Last lipid panel showed triglyceride 192, cholesterol 152, LDL 58, HDL 56 Plan: -Continue home medication atorvastatin 40 mg QDAY #Nit-ryscejf-bhxtjdxkq type 2 diabetes On admission glucose 182 and A1c 8. Home Farxiga Fingersticks have been in the 200s Plan: -Continue home Farxiga 10 mg po - Bedside glucose checks ACHS - Continue SSI type II #Chronic pain syndrome #OA of Rt Elbow Per the patient he injured his elbow getting out of bed X-ray showed Mild elbow osteoarthritis. 6 mm posterior bony olecranon spur. Plan: - Continue home gabapentin 300 mg Qday? - Dilaudid 4 mg p.o. Q6H PRN? for pain control - Topical diclofenac 4 g every 4 hours as needed and lidocaine patch as needed #Chronic normocytic anemia On admission hemoglobin 10.4, hematocrit 32.1.? For last 2 years H&H has been low but stable? Not actively bleeding Plan: -Continue to monitor H&H #Hx of anxiety #Hx Depression Patient has an established history of anxiety and depression Plan: -resume? home mirtazapine 7.5 mg p.o.hs, -resume home? Ativan 0.5 mg Q6h for severe anxiety Hospital management: Lines: peripheral IV Diet: Cardiac Bowel: Senna GI prophylaxis: Protonix 40 mg DVT prophylaxis: Eliquis 5mg Disposition: Patient will continue diuresis today. Monitor urine output. Clinical picture of CHF exacerbation has been improving. CODE STATUS: Full code This case was discussed with my attending physician Dr. Binh JOYNER and senior resident Dr Gustabo LINARES PGY-2. Nikita Calvo DO PGY-1 Attending Provider Attestation/Addendum Teresa Au DO, attest that I was physically present for the olson portions of the service and evaluated the patient with the resident and I reviewed and discussed the case with the resident and agree with the resident's findings and plans of care as documented above Patient seen and evaluated this AM. Patient complains of right elbow pain after trying to scoot up in bed yesterday. He stated that he felt a pop, but XR of elbow did not show any fracture. Patient is able supinate, but limited ROM with extension and pronation. There is some edema over the medial and posterior aspect of the elbow and tenderness to palpation. Suspect strain/ sprain. Recommend keeping joint immobilized, rest and cold compress. He continues to have 2+ pitting edema in b/l LE. Will continue with bumex. Will monitor renal function closely. Patient reports feeling a little better today. He remains on 1-2L/NC.
--- NOTE | 2024-12-12 15:09 | PC.SS ---
Rounding: One more day of diuretics DC tomorrow home
--- NOTE | 2024-12-12 17:14 | ESPR_ITS ---
<Statement entered by Tamara Castaneda MD - 12/16/24 14:34> I personally examined evaluated the patient with resident physician Dr. Graves patient is feeling better now responding well to diuretic therapy renal function not deteriorated significantly continue bumetanide 2 mg once a day for now monitor renal panel closely while he remains stable asymptomatic shortness with improved he can be discharged he will have an outpatient follow-up as an outpatient with oral diuretics. Documentation for date of: 12/12/24 Subjective Subjective Interval history: Patient seen today at the bedside found awake, alert, orientedx3. No overnight events reported. Vitals and labs reviewed. Lower extremity edema improving. increased fluid restriction to 2L, will continue with Bumex 2 mg twice daily IV at this time. Exam Vital Signs Temp Pulse Resp BP Pulse Ox O2 Del Method O2 Flow Rate 96.6 F L 67 28 H 105/65 95 Nasal Cannula 2 12/12/24 16:00 12/12/24 16:00 12/12/24 16:00 12/12/24 16:00 12/12/24 16:00 12/12/24 16:00 12/12/24 16:00 Narrative Exam Physical Exam GENERAL: NAD, AAOx3 HEENT: Moist mucosa. Eyes open, symmetrical, & clear CARDIO: Heart RRR, no obvious murmurs PULM: No noted coughing/dyspnea CTA B/L, no R/W/R GI: Abdomen distended, no pain on palpation. BSx4 SKIN/MSK/EXT: bilateral lower extremity edema-improving, right scrotal swelling, no pain on palpation. Pedal pulses present B/L NEURO: AAOx3, no focal neuro deficits, able to move all 4 extremities Objective Labs 12/12/24 05:24 12/12/24 05:24 Labs: Laboratory Results - last 24 hr 12/12/24 05:24 WBC 10.6 RBC 4.32 L Hgb 12.7 L Hct 37.8 L MCV 88 MCH 29.4 MCHC 33.6 RDW Std Deviation 43.4 Plt Count 229 Neut % (Auto) 68 Lymph % (Auto) 22 [place] % (Auto) 8 Eos % (Auto) 1 Baso % (Auto) 1 Neut # (Auto) 7.3 Lymph # (Auto) 2.3 [place] # (Auto) 0.9 H Eos # (Auto) 0.1 Baso # (Auto) 0.1 Immature Gran # (Auto) 0.05 H Absolute Nucleated RBC 0.00 Immature Gran % 1 H Nucleated RBC % 0 Sodium 136 Potassium 3.5 Chloride 84 L Carbon Dioxide 39.9 H Anion Gap 12 BUN 18 Creatinine 1.7 H Estim Creat Clear Calc 75.6 eGFR 47 L BUN/Creatinine Ratio 11 L Glucose 237 H Calculated Osmolality 281 Calcium 10.2 Corrected Calcium 10.2 H Phosphorus 5.5 H Magnesium 2.2 Total Bilirubin 0.8 AST 30 ALT 30 Alkaline Phosphatase 89 Total Protein 8.0 Albumin 4.8 Globulin 3.2 Albumin/Globulin Ratio 1.5 Quality Measures Quality Measures none Assessment & Plan Assessment Current Active Medications: Generic Name Dose Route Start Last Admin Trade Name Freq PRN Reason Stop Dose Admin Acetaminophen 650 mg 12/10/24 10:22 12/12/24 06:17 Acetaminophen 325 Mg Tablet PO 01/09/25 03:07 650 mg Q6H PRN Administration Fever >100.4 Amiodarone HCl 100 mg 12/10/24 09:15 12/12/24 12:18 Amiodarone Hcl 200 Mg Tablet PO 01/09/25 09:14 100 mg QID ELVIN Administration Apixaban 5 mg 12/10/24 09:00 12/12/24 08:06 Apixaban 2.5 Mg Tablet PO 01/09/25 08:59 5 mg BID ELVIN Administration Atorvastatin Calcium 40 mg 12/10/24 21:00 12/11/24 20:45 Atorvastatin Calcium 20 Mg Tablet PO 01/09/25 20:59 40 mg HS ELVIN Administration Bumetanide 2 mg 12/11/24 21:00 12/12/24 08:06 Bumetanide Inj 0.25 Mg/Ml Vial 4 Ml IVP 01/10/25 20:59 2 mg BID ELVIN Administration Carvedilol 25 mg 12/10/24 09:00 12/12/24 08:07 Carvedilol 12.5 Mg Tablet PO 01/09/25 08:59 25 mg BID ELVIN Administration Eplerenone 50 Mg 0 ea 12/10/24 09:00 12/12/24 08:14 Tablet PO 01/09/25 08:59 1 tablet QDAY ELVIN Administration Dapagliflozin 10 mg 12/10/24 09:00 12/12/24 08:08 Dapagliflozin Propanediol 5 Mg Tablet PO 01/09/25 08:59 10 mg QAM ELVIN Administration Dextrose 25 ml 12/10/24 06:01 Dextrose 50%-Water Inj 50 Ml Syringe IV 01/09/25 06:00 Q15MIN PRN BG 50-70 responsive npo pt Dextrose 50 ml 12/10/24 06:01 Dextrose 50%-Water Inj 50 Ml Syringe IV 01/09/25 06:00 Q15MIN PRN BG <50 OR BG <70 & pt unresponsive Diclofenac Sodium 4 gm 12/10/24 15:13 12/12/24 09:49 Diclofenac 1% Top Gel 100 Gm Tube TOP 01/09/25 17:59 4 gm Q6HR PRN Administration elbow pain Protocol Gabapentin 300 mg 12/10/24 09:00 12/12/24 08:08 Gabapentin 300 Mg Capsule PO 01/09/25 08:59 300 mg DAILY ELVIN Administration Glucagon 1 mg 12/10/24 06:01 Glucagon Inj 1 Mg Vial IM Q15MIN PRN BG <70, and no IV access Hydromorphone HCl 4 mg 12/10/24 10:20 12/12/24 13:53 Hydromorphone Hcl 2 Mg Tablet PO 12/15/24 03:21 4 mg Q4H PRN Administration PAIN SEVERE 7-10 Insulin Human Lispro 0 unit 12/11/24 07:53 12/12/24 11:40 Insulin Lispro (Admelog) 1 Unit/0.01 Ml Unit SC 01/10/25 07:29 3 unit ACHS ELVIN Administration Protocol Lactulose 20 gm 12/11/24 10:00 12/12/24 08:08 Lactulose Syrup 20 Gm/30 Ml Udc PO 01/10/25 09:59 20 gm DAILY ELVIN Administration Protocol Levothyroxine Sodium 88 mcg 12/11/24 06:00 12/12/24 05:09 Levothyroxine Sodium 88 Mcg Tablet PO 01/10/25 05:59 88 mcg ACBR ELVIN Administration Lidocaine 1 patch 12/12/24 11:51 12/12/24 12:23 Lidocaine 5% 1 Patch TOP 01/11/25 11:50 1 patch UD PRN Administration PAIN Protocol Lorazepam 1 mg 12/10/24 18:00 12/12/24 12:18 Lorazepam 0.5 Mg Tablet PO 12/15/24 17:59 1 mg Q6HR ELVIN Administration Metolazone 5 mg 12/10/24 13:15 12/12/24 08:08 Metolazone 2.5 Mg Tablet PO 01/09/25 13:14 5 mg QDAY ELVIN Administration Mirtazapine 7.5 mg 12/10/24 21:00 12/11/24 20:46 Mirtazapine 15 Mg Tablet PO 01/09/25 20:59 7.5 mg HS ELVIN Administration Multivitamins 1 tab 12/11/24 10:45 12/12/24 08:08 Multivitamins Tablet PO 01/10/25 10:44 1 tab QDAY ELVIN Administration Naloxegol 25 mg 12/10/24 09:42 12/11/24 20:45 Naloxegol Oxalate 25 Mg Tablet (Non-Formulary) PO 01/09/25 09:41 25 mg HS ELVIN Administration Ondansetron HCl 4 mg 12/10/24 03:08 12/11/24 22:14 Ondansetron Inj 2 Mg/Ml Inj 2 Ml IVP 01/09/25 03:07 4 mg Q6H PRN Administration NAUSEA OR VOMITING Protocol Pantoprazole Sodium 40 mg 12/10/24 09:00 12/12/24 08:09 Pantoprazole 40 Mg Tablet PO 01/09/25 08:59 40 mg QDAY ELVIN Administration Sacubitril/Valsartan 1 tab 12/10/24 09:00 12/12/24 08:09 Sacubitril 24 Mg/Valsartan 26 Mg Tablet PO 01/09/25 08:59 1 tab BID ELVIN Administration Tamsulosin HCl 0.4 mg 12/10/24 03:30 12/11/24 20:45 Tamsulosin Hcl 0.4 Mg Capsule PO 01/09/25 03:29 0.4 mg HS ELVIN Administration Plan 54-year-old patient with past medical history significant for patient for hypertension, non-insulin dependent diabetes mellitus, hypothyroidism, A-fib on Eliquis, advanced cardiomyopathy with ICD in place, HFrEF (EF 30%), pulmonary HTN type II ,who presented to the ED on 12/09/2024 with chest pain, SOB and weight gain for the last 7 days #Acute decompensated heart failure exacerbation #Heart failure with reduced ejection fraction [30%] status post ICD #Nonischemic cardiomyopathy #Atrial fibrillation?rate controlled #Hypertension Presented with clinical signs such as shortness of breath, dyspnea on exertion, bilateral leg swelling, CXR: Showing vascular congestion BNP: 485 CHADsVASc score 3 ; 3.2% risk of stroke/ TIA/systemic embolism HASBLED score 2 ; Moderate risk of major bleeding rate controlled with current management Echo: Dilated cardiomyopathy with severe left ventricle systolic dysfunction ejection fraction 25 to 30%. RV systolic function is moderately decreased. The right ventricular size is mildy increased. Mild to moderate tricuspid regurgitation with evidence of normal PA pressure approximately 35 mmHg. Evidence of pacemaker leads in the right ventricle. ? continue Bumex 2 mg IV twice times daily ? Eplerenone 50 mg daily ? Added metolazone 5 mg daily ? Continue rest of goal-directed medical therapy such as Entresto, Coreg, ? Continue Eliquis 5 mg twice daily ? Continue amiodarone as taken at home ? Keep K>4, Mg>2 ? Provide oxygen as required ? Strict I's and O's #Hypothyroidism #Hypertension # Hyperlipidemia #Ibj-ajjusff-qieolzbhl type 2 diabetes #Chronic pain syndrome # Chronic normocytic anemia #Hx of anxiety # HX Depression - as per primary team Case discussed with my attending Dr. Leonel Graves MD PGY-2 Disclaimer: Despite multiple revisions, due to the dictation software being used, the document bellow may not be free of grammatical errors including phonetic/typographic errors. However, this does not deter from our commitment to providing health care in the patient's best interest in mind.
[2024-12-12] MEDS: ATORVASTATIN CALCIUM 20 MG TABLET 40 MG PO (20:14)
[2024-12-12] MEDS: MIRTAZAPINE 15 MG TABLET 7.5 MG PO (21:38)
[2024-12-12] MEDS: TAMSULOSIN HCL 0.4 MG CAPSULE PO (21:39)
[2024-12-12] MEDS: NALOXEGOL OXALATE 25 MG TABLET (NON-FORMULARY) PO (21:40)
[2024-12-13] VITALS (16 sets, daily range): BP systolic 100–139; BP diastolic 65–86; PULSE 66–83; RESP 12–22; TEMP 35.9–36.4; O2SAT 94–100; BMI 38.7; BMI 38.5
[2024-12-13] MEDS: HYDROMORPHONE HCL 2 MG TABLET 4 MG PO ×5 (04:05→22:27)
[2024-12-13] MEDS: AMIODARONE HCL 200 MG TABLET 100 MG PO ×4 (05:34→21:06)
[2024-12-13] MEDS: LEVOTHYROXINE SODIUM 88 MCG TABLET PO (05:35)
[2024-12-13 05:55] LABS: Basophils # (Auto) 0.1 Thou/mm3 (0.0-0.2); Basophils % (Auto) 1 % (0-2.5); Eosinophils # (Auto) 0.1 Thou/mm3 (0.0-0.5); Eosinophils % (Auto) 2 % (0-10); Hematocrit 37.2 % (41.0-53.0); Hemoglobin 12.6 g/dL (13.5-16.0); Immature Granulocytes Auto 0.04 Thou/mm3 (0.00-0.00); Lymphocytes # (Auto) 2.1 Thou/mm3 (1.0-4.8); Lymphocytes % (Auto) 23 % (10-50); Mean Corpuscular HGB Conc 33.9 g/dl (31.0-37.0); Mean Corpuscular Hemoglobin 30.3 pg (25.0-35.0); Mean Corpuscular Volume 89 fL (80-100); Monocytes # (Auto) 0.7 Thou/mm3 (0.0-0.8); Monocytes % (Auto) 8 % (0-12); Neutrophils # (Auto) 5.9 Thou/mm3 (1.8-7.7); Neutrophils % (Auto) 66 % (37-80); Nucleated Red Blood Cell # 0.00 Thou/mm3 (0.00-0.00); Nucleated Red Blood Cell % 0 /100 WBC (0); Platelet Count 233 Thou/mm3 (140-440); RDW Standard Deviation 43.8 fL (35.1-43.9); Red Blood Count 4.16 Miln/mm3 (4.50-5.90); White Blood Count 8.9 Thou/mm3 (3.8-10.6)
[2024-12-13 06:36] LABS: Anion Gap 15 (7-16); BUN/Creatinine Ratio 18 Ratio (12-20); Blood Urea Nitrogen 31 mg/dL (9-23); Calcium 10.4 mg/dL (8.3-10.6); Carbon Dioxide > 40.0 mMol/L (20.0-31.0); Chloride 80 mMol/L (98-107); Creatinine (Component) 1.7 mg/dL (0.6-1.3); Estimated Creatinine Clearance 75.1 mL/min (>60); Glucose 182 mg/dL (74-106); Magnesium 2.0 mg/dL (1.6-2.6); Osmolality,Calculated 281 (275-295); Phosphorous 5.0 mg/dL (2.4-5.1); Potassium 3.1 mMol/L (3.4-5.1); Sodium 135 mMol/L (136-145); eGFR 47 See Note
[2024-12-13] MEDS: INSULIN LISPRO (AdmeLOG) 1 UNIT/0.01 ML UNIT SC ×3 (07:27→17:16)
[2024-12-13] MEDS: DAPAGLIFLOZIN PROPANEDIOL 5 MG TABLET 10 MG PO (08:37)
[2024-12-13] MEDS: PANTOPRAZOLE 40 MG TABLET PO (08:38)
[2024-12-13] MEDS: GABAPENTIN 300 MG CAPSULE PO (08:38)
[2024-12-13] MEDS: MULTIVITAMINS TABLET 1 TAB PO (08:38)
[2024-12-13] MEDS: LACTULOSE SYRUP 20 GM/30 ML UDC PO (08:39)
[2024-12-13] MEDS: APIXABAN 2.5 MG TABLET 5 MG PO ×2 (08:39→21:09)
[2024-12-13] MEDS: Magnesium Sulfate 2 GM Ivpb 2 GM/50 ML BAG IV (08:54)
[2024-12-13] MEDS: EPLERENONE 50 MG TABLET PO (08:54)
[2024-12-13] MEDS: ACETAzolaMIDE SOD 500 MG in SODIUM CHLORIDE 0.9% (Popper) 50 ML 100 MG IV (10:16)
[2024-12-13] MEDS: ACETAMINOPHEN 325 MG TABLET 650 MG PO ×2 (10:28→23:22)
--- NOTE | 2024-12-13 13:32 | ESPR_ITS ---
<Statement entered by Moses Montejo MD - 12/13/24 21:14> No acute overnight events. Seen and examined at bedside and states that his right upper extremity pain is improved. Also states that he refuses to take any form of K, IV or oral. 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 Otherwise, appreciate cardiology recommendations and stable for discharge from their perspective. ----- Note reviewed and agree with care plan as documented. Please refer to the note below for further details. Plan discussed with attending physician Dr. Binh Montejo MD PGY-2 Internal Medicine Documentation for date of: 12/13/24 Subjective Subjective Interval history: Patient was seen and examined at bedside. Patient is hypokalemic with a potassium of 3.1 but is refusing to take his oral potassium or IV potassium infusion. Ordered Banatrol packets and dietary on board and will work to have a potassium rich diet. Continuing to diurese with cardiology on board. Exam Vital Signs Temp Pulse Resp BP Pulse Ox O2 Del Method O2 Flow Rate 97.0 F 70 16 124/81 94 L Nasal Cannula 2 12/13/24 12:00 12/13/24 12:12/13/24 12:12/13/24 12:00 12/13/24 12:00 12/13/24 12:00 12/13/24 12:00 Narrative Exam General: Obese man. Awake and in no acute distress. Conversational and non- toxic appearing. Neurologic: GCS 15. Alert and oriented x3, no gross neurological deficit, and patient able to move all 4 extremities. HEENT: Normocephalic, atraumatic, mucous membranes moist. Pupils reactive to light. Heart: Regular rate and rhythm, normal S1 and S2, no murmurs. Lungs: Clear to auscultation bilaterally with no wheezing or crackles. Abdomen: Sizable mass in the mid epigastric to right upper quadrant area when the patient touches his chin to his chest, likely a hernia. Pain pump subcutaneous in the left upper quadrant. Obese. Extremities: 1+ bilateral pitting edema of the lower extremities, right lower extremity bigger than left lower extremity. Skin: Warm. Dry. No rash or ecchymoses. Objective Labs 12/14/24 05:00 12/14/24 13:12 Labs: Laboratory Results - last 24 hr 12/13/24 05:11 WBC 8.9 RBC 4.16 L Hgb 12.6 L Hct 37.2 L MCV 89 MCH 30.3 MCHC 33.9 RDW Std Deviation 43.8 Plt Count 233 Neut % (Auto) 66 Lymph % (Auto) 23 Wilson % (Auto) 8 Eos % (Auto) 2 Baso % (Auto) 1 Neut # (Auto) 5.9 Lymph # (Auto) 2.1 Wilson # (Auto) 0.7 Eos # (Auto) 0.1 Baso # (Auto) 0.1 Immature Gran # (Auto) 0.04 H Absolute Nucleated RBC 0.00 Immature Gran % 0 Nucleated RBC % 0 Sodium 135 L Potassium 3.1 L Chloride 80 L Carbon Dioxide > 40.0 H Anion Gap 15 BUN 31 H Creatinine 1.7 H Estim Creat Clear Calc 75.1 eGFR 47 L BUN/Creatinine Ratio 18 Glucose 182 H D Calculated Osmolality 281 Calcium 10.4 Phosphorus 5.0 Magnesium 2.0 Quality Measures Quality Measures none Assessment & Plan Assessment Current Active Medications: Generic Name Dose Route Start Last Admin Trade Name Freq PRN Reason Stop Dose Admin Acetaminophen 650 mg 12/10/24 10:22 12/13/24 10:28 Acetaminophen 325 Mg Tablet PO 01/09/25 03:07 650 mg Q6H PRN Administration Fever >100.4 Amiodarone HCl 100 mg 12/10/24 09:15 12/13/24 11:41 Amiodarone Hcl 200 Mg Tablet PO 01/09/25 09:14 100 mg QID ELVIN Administration Apixaban 5 mg 12/10/24 09:00 12/13/24 08:39 Apixaban 2.5 Mg Tablet PO 01/09/25 08:59 5 mg BID ELVIN Administration Atorvastatin Calcium 40 mg 12/10/24 21:00 12/12/24 20:14 Atorvastatin Calcium 20 Mg Tablet PO 01/09/25 20:59 40 mg HS ELVIN Administration Bumetanide 2 mg 12/11/24 21:00 12/12/24 20:08 Bumetanide Inj 0.25 Mg/Ml Vial 4 Ml IVP 01/10/25 20:59 2 mg On Hold: 12/13/24 08:34 BID ELVIN Administration Carvedilol 25 mg 12/10/24 09:00 12/13/24 08:38 Carvedilol 12.5 Mg Tablet PO 01/09/25 08:59 25 mg BID ELVIN Administration Eplerenone 50 Mg 0 ea 12/10/24 09:00 12/13/24 08:54 Tablet PO 01/09/25 08:59 1 tablet QDAY ELVIN Administration Dapagliflozin 10 mg 12/10/24 09:00 12/13/24 08:37 Dapagliflozin Propanediol 5 Mg Tablet PO 01/09/25 08:59 10 mg On Hold: 12/13/24 09:03 QAM ELVIN Administration Dextrose 50 ml 12/10/24 06:01 Dextrose 50%-Water Inj 50 Ml Syringe IV 01/09/25 06:00 Q15MIN PRN BG <50 OR BG <70 & pt unresponsive Diclofenac Sodium 4 gm 12/10/24 15:13 12/12/24 09:49 Diclofenac 1% Top Gel 100 Gm Tube TOP 01/09/25 17:59 4 gm Q6HR PRN Administration elbow pain Protocol Gabapentin 300 mg 12/10/24 09:00 12/13/24 08:38 Gabapentin 300 Mg Capsule PO 01/09/25 08:59 300 mg DAILY ELVIN Administration Glucagon 1 mg 12/10/24 06:01 Glucagon Inj 1 Mg Vial IM Q15MIN PRN BG <70, and no IV access Hydromorphone HCl 4 mg 12/10/24 10:20 12/13/24 08:39 Hydromorphone Hcl 2 Mg Tablet PO 12/15/24 03:21 4 mg Q4H PRN Administration PAIN SEVERE 7-10 Insulin Human Lispro 0 unit 12/13/24 11:30 12/13/24 11:42 Insulin Lispro (Admelog) 1 Unit/0.01 Ml Unit SC 01/12/25 11:29 1 unit AC ELVIN Administration Protocol Lactulose 20 gm 12/11/24 10:00 12/13/24 08:39 Lactulose Syrup 20 Gm/30 Ml Udc PO 01/10/25 09:59 20 gm DAILY ELVIN Administration Protocol Levothyroxine Sodium 88 mcg 12/11/24 06:00 12/13/24 05:35 Levothyroxine Sodium 88 Mcg Tablet PO 01/10/25 05:59 88 mcg ACBR ELVIN Administration Lidocaine 1 patch 12/12/24 11:51 12/12/24 12:23 Lidocaine 5% 1 Patch TOP 01/11/25 11:50 1 patch UD PRN Administration PAIN Protocol Lorazepam 1 mg 12/10/24 18:00 12/13/24 11:41 Lorazepam 0.5 Mg Tablet PO 12/15/24 17:59 1 mg Q6HR ELVIN Administration Metolazone 5 mg 12/10/24 13:15 12/13/24 08:37 Metolazone 2.5 Mg Tablet PO 01/09/25 13:14 5 mg On Hold: 12/13/24 09:02 QDAY ELVIN Administration Mirtazapine 7.5 mg 12/10/24 21:00 12/12/24 21:38 Mirtazapine 15 Mg Tablet PO 01/09/25 20:59 7.5 mg HS ELVIN Administration Multivitamins 1 tab 12/11/24 10:45 12/13/24 08:38 Multivitamins Tablet PO 01/10/25 10:44 1 tab QDAY ELVIN Administration Naloxegol 25 mg 12/10/24 09:42 12/12/24 21:40 Naloxegol Oxalate 25 Mg Tablet (Non-Formulary) PO 01/09/25 09:41 25 mg HS ELVIN Administration Ondansetron HCl 4 mg 12/10/24 03:08 12/11/24 22:14 Ondansetron Inj 2 Mg/Ml Inj 2 Ml IVP 01/09/25 03:07 4 mg Q6H PRN Administration NAUSEA OR VOMITING Protocol Pantoprazole Sodium 40 mg 12/10/24 09:00 12/13/24 08:38 Pantoprazole 40 Mg Tablet PO 01/09/25 08:59 40 mg QDAY ELVIN Administration Sacubitril/Valsartan 1 tab 12/10/24 09:00 12/13/24 08:38 Sacubitril 24 Mg/Valsartan 26 Mg Tablet PO 01/09/25 08:59 1 tab BID ELVIN Administration Tamsulosin HCl 0.4 mg 12/10/24 03:30 12/12/24 21:39 Tamsulosin Hcl 0.4 Mg Capsule PO 01/09/25 03:29 0.4 mg HS ELVIN Administration Plan Mr. Barnes is a 54-year-old patient with past medical history significant for patient for hypertension, non-insulin dependent diabetes mellitus, hypothyroidism, A-fib on Eliquis, cardiomyopathy s/p ICD in place, HFrEF? (EF 30%) on 2L home O2, pulmonary HTN type II ,who presented to the ED on 12/09/2024 for worsening chest pain, SOB requiring 3 L of O2 via NC (a liter above his baseline), bilateral lower extremity edema, and more than 20 pound weight gain during the previous week. Patient also had paroxysmal nocturnal dyspnea and orthopnea requiring multiple pillows to sleep. Patient was well controlled until recently when he started to develop progressive shortness of breath for the past week with associated chest pressure and increased abdominal girth. Patient was admitted for acute decompensated heart failure exacerbation. Patient was resumed on home GDMT with Entresto twice daily, Farxiga 10 mg, Coreg 25 mg twice daily, eplerenone 50 mg daily as well as aggressive diuresis with Bumex. #Acute decompensation of previously stable heart failure #HFrEF (EF 30%) S/P ICD #Nonischemic cardiomyopathy #Hx Pulmonary hypertension type II - Patient initially presented with worsening SOB on 3L NC. On physical examination noted abdominal and scrotal swelling,+2 edema BLE.? TTE done at Dr. Jak Castaneda's office on 12/23/2023 revealed LVEF 30% - CXR showing vascular congestion. BNP 485.? Troponin < 0.002 - In ED received lasix 40mg x2 - Allergy to aldactone - Patient is a client of Dr. Castaneda's clinic, cardiology on board - Patient is net -3.8 L on 12/12/2024 - Echo on 12/10/2024 showed severe left ventricular systolic dysfunction with ejection fraction of 25-30%. Plan: - Continue home GDMT: Entresto 1 tab BID, Farxiga 10 mg, Coreg 25 mg p.o. BID, eplerenone 50mg qday - Changed IV Bumex 2 mg twice daily to once daily ? DC metolazone 5mg daily - Strict ins and outs - Diet: 2g sodium restriction - Daily weights - Fluid restriction 1500 ml - Supplemental O2 as needed, wean as tolerated - Keep K > 4 and Mg > 2 - Dope Heater Dr. Castaneda consulted, appreciate recommendations #Atrial fibrillation, rate controlled - EKG revealed paced ventricular rhythm no ST changes, rate of 85 and QTc of 550 - Home medication : Coreg 25 Mg BID, amiodarone 200 Mg twice daily, Eliquis 5 Mg twice daily - CHADsVASc score 3 ; 3.2% risk of stroke/ TIA/systemic embolism - HASBLED score 2 ; Moderate risk of major bleeding Plan: -Currently rate well-controlled with Coreg 25 mg, rhythm control amiodarone 200 mg p.o. BID daily, anticoagulant Eliquis 5 mg - resumed home medication as mentioned above - Continue to monitor on telemetry - Continue amiodarone as taken at home 100mg QID #JOSE - Patient's creatinine sd from 1.5 to 1.9 in 48 hours - Considering the presence of volume depletion versus diuretic use Plan: - Reduced Bumex dose from 2 mg twice daily to once daily #Hypokalemia - Potassium 3.1 - Patient refusing his oral and IV potassium supplementation - Ordered Banatrol packet which is 3.1 mL EQ's of potassium, 2 packets with each meal 3 times daily equates to 18 mill EQ total per day - Dietary on board, will consider that a high potassium diet also involves increased carbohydrates Plan: - Dietary on board, encouraging potassium rich diet intake - Given that a potassium rich diet involves increased carbohydrates, will start degludec 8 units at bedtime because sugars are in the 200s - Follow-up potassium and blood sugar level #Constipation -Patient reports abdominal fullness and pressure with last BM 2 days ago Plan: - Resumed home laxative Movantik p.o. 25 mg at bedtime ? Lactulose p.o. 20 mg syrup daily #Hypothyroidism - TSH 11.65 Plan: - Resumed home levothyroxine 88 mcg ACBR #Hypertension - Patient has a established history of hypertension Plan: - Resume home medication as above # Hyperlipidemia - Last lipid panel showed triglyceride 192, cholesterol 152, LDL 58, HDL 56 Plan: -Continue home medication atorvastatin 40 mg QDAY #Ilt-[id number] type 2 diabetes - On admission glucose 182 and A1c 8. Home Farxiga - Fingersticks have been in the 200s Plan: -Continue home Farxiga 10 mg po - Bedside glucose checks ACHS - Change sliding scale insulin from step to to step 3 - Started degludec 8 units at bedtime #Chronic pain syndrome #OA of Rt Elbow Per the patient he injured his elbow getting out of bed X-ray showed Mild elbow osteoarthritis. 6 mm posterior bony olecranon spur. Plan: - Continue home gabapentin 300 mg Qday? - Dilaudid 4 mg p.o. Q6H PRN? for pain control - Topical diclofenac 4 g every 4 hours as needed and lidocaine patch as needed #Chronic normocytic anemia - On admission hemoglobin 10.4, hematocrit 32.1.? For last 2 years H&H has been low but stable? Not actively bleeding Plan: -Continue to monitor H&H #Hx of anxiety #Hx Depression - Patient has an established history of anxiety and depression Plan: - Continue home mirtazapine 7.5 mg p.o.hs, - Continue home?Ativan 0.5 mg Q6h for severe anxiety Hospital management: Lines: peripheral IV Diet: Cardiac Bowel: Senna GI prophylaxis: Protonix 40 mg DVT prophylaxis: Eliquis 5mg Disposition: Continuing diuresis. CHF clinical picture improving. Monitoring potassium, starting potassium rich diet. Started degludec 8 units at bedtime. Monitoring glucose. CODE STATUS: Full code This case was discussed with my attending physician Dr. Binh JOYNER and senior resident Dr Gustabo LINARES PGY-2. Nikita Calvo DO PGY-1 Attending Provider Attestation/Addendum I, Teresa Purcell DO, attest that I was physically present for the olson portions of the service and evaluated the patient with the resident and I reviewed and discussed the case with the resident and agree with the resident's findings and plans of care as documented above Patient seen and evaluated this a.m. He states that he is feeling a little bit better. He is noted to have worsening of contractile alkalosis and uptrending BUN/creatinine. 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 Will consult nephrology for further recommendations. Potassium has been 3.1, but patient states that he cannot take any oral or IV potassium as he feels sick to his stomach and has a burning up feeling. Will switch Bumex to once daily as per cardiology recommendations. Hold metolazone. Will continue to follow with renal function. Patient reports improved pain in his right elbow and decrease swelling noted. He continues to have 1+ pitting edema in bilateral lower extremities. Will follow-up with cardiology and nephrology recommendations.
[2024-12-13] MEDS: LIDOCAINE 5% 1 PATCH TOP (13:39)
[2024-12-13] MEDS: BUMETANIDE INJ 0.25 MG/ML VIAL 4 ML 2 MG IVP (13:48)
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
--- NOTE | 2024-12-13 14:44 | XR_ITS ---
Examination: Retroperitoneal ultrasound, complete Technique: Multiple high resolution grayscale images of the retroperitoneum obtained, including kidneys and bladder. Exam date and time:December 13, 2024 1606 hrs. Indications: Dysuria 3 months, acute renal insufficiency on laboratory examination this month. Findings: Right kidney 11.1 cm cortex 1.9 cm Left kidney 11.4 cm cortex 1.7 cm Mild renal scar formation No hydronephrosis No bladder mass or bladder calculi Bladder prevoid volume 192 cc Impression: Mild bilateral renal parenchymal scar formation No hydronephrosis.
[2024-12-13 16:10] LABS: Albumin, Serum 4.8 gm/dL (3.5-5.0); Anion Gap 12 (7-16); BUN/Creatinine Ratio 15 Ratio (12-20); Blood Urea Nitrogen 29 mg/dL (9-23); Calcium 10.4 mg/dL (8.3-10.6); Calcium (Corrected) 10.4 mg/dL (8.5-10.1); Carbon Dioxide > 40.0 mMol/L (20.0-31.0); Chloride 80 mMol/L (98-107); Creatinine (Component) 1.9 mg/dL (0.6-1.3); Estimated Creatinine Clearance 67.2 mL/min (>60); Glucose 238 mg/dL (74-106); Osmolality,Calculated 278 (275-295); Phosphorous 5.1 mg/dL (2.4-5.1); Potassium 3.3 mMol/L (3.4-5.1); Sodium 132 mMol/L (136-145); eGFR 41 See Note
--- NOTE | 2024-12-13 20:22 | ESPR_ITS ---
<Statement entered by Tamara Castaneda MD - 12/16/24 14:12> I personally evaluated examined the patient with PGY 2 Dr. Parviz Graves agree with the treatment plan recommendation as documented patient is improving renal function slightly worsened hence we will reduce her Bumex dose to 2 mg once a day metolazone was discontinued already monitor electrolytes and renal panel closely. Documentation for date of: 12/13/24 Subjective Subjective Interval history: Patient seen today at the bedside found awake, alert, orientedx3. No overnight events reported. Vital signs stable at this time. No active complaints at this time. Labs reviewed noted to have increase in BUN, will hold off on metolazone at this time and adjusted Bumex IV to once a day and discontinued fluid restriction. Can be discharged in the am from cardiology standpoint. Exam Vital Signs Temp Pulse Resp BP Pulse Ox O2 Del Method O2 Flow Rate 97.5 F 69 18 115/75 99 Nasal Cannula 2 12/13/24 16:00 12/13/24 19:55 12/13/24 19:55 12/13/24 17:19 12/13/24 19:55 12/13/24 16:00 12/13/24 19:55 Narrative Exam Physical Exam GENERAL: NAD, AAOx3 HEENT: Moist mucosa. Eyes open, symmetrical, & clear CARDIO: Heart RRR, no obvious murmurs PULM: No noted coughing/dyspnea CTA B/L, no R/W/R GI: Abdomen distended, no pain on palpation. BSx4 SKIN/MSK/EXT: bilateral lower extremity edema-improving, right scrotal swelling, no pain on palpation. Pedal pulses present B/L NEURO: AAOx3, no focal neuro deficits, able to move all 4 extremities Objective Labs 12/15/24 05:16 12/15/24 05:16 Labs: Laboratory Results - last 24 hr 12/13/24 12/13/24 05:11 15:03 WBC 8.9 RBC 4.16 L Hgb 12.6 L Hct 37.2 L MCV 89 MCH 30.3 MCHC 33.9 RDW Std Deviation 43.8 Plt Count 233 Neut % (Auto) 66 Lymph % (Auto) 23 [place] % (Auto) 8 Eos % (Auto) 2 Baso % (Auto) 1 Neut # (Auto) 5.9 Lymph # (Auto) 2.1 [place] # (Auto) 0.7 Eos # (Auto) 0.1 Baso # (Auto) 0.1 Immature Gran # (Auto) 0.04 H Absolute Nucleated RBC 0.00 Immature Gran % 0 Nucleated RBC % 0 Sodium 135 L 132 L Potassium 3.1 L 3.3 L Chloride 80 L 80 L Carbon Dioxide > 40.0 H > 40.0 H Anion Gap 15 12 BUN 31 H 29 H Creatinine 1.7 H 1.9 H Estim Creat Clear Calc 75.1 67.2 eGFR 47 L 41 L BUN/Creatinine Ratio 18 15 Glucose 182 H D 238 H D Calculated Osmolality 281 278 Calcium 10.4 10.4 Corrected Calcium 10.4 H Phosphorus 5.0 5.1 Magnesium 2.0 Albumin 4.8 Quality Measures Quality Measures none Assessment & Plan Assessment Current Active Medications: Generic Name Dose Route Start Last Admin Trade Name Freq PRN Reason Stop Dose Admin Acetaminophen 650 mg 12/10/24 10:22 12/13/24 10:28 Acetaminophen 325 Mg Tablet PO 01/09/25 03:07 650 mg Q6H PRN Administration Fever >100.4 Amiodarone HCl 100 mg 12/10/24 09:15 12/13/24 17:19 Amiodarone Hcl 200 Mg Tablet PO 01/09/25 09:14 100 mg QID ELVIN Administration Apixaban 5 mg 12/10/24 09:00 12/13/24 08:39 Apixaban 2.5 Mg Tablet PO 01/09/25 08:59 5 mg BID ELVIN Administration Atorvastatin Calcium 40 mg 12/10/24 21:00 12/12/24 20:14 Atorvastatin Calcium 20 Mg Tablet PO 01/09/25 20:59 40 mg HS ELVIN Administration Bumetanide 2 mg 12/13/24 13:45 12/13/24 13:48 Bumetanide Inj 0.25 Mg/Ml Vial 4 Ml IVP 01/12/25 13:44 2 mg QDAY ELVIN Administration Carvedilol 25 mg 12/10/24 09:00 12/13/24 08:38 Carvedilol 12.5 Mg Tablet PO 01/09/25 08:59 25 mg BID ELVIN Administration Eplerenone 50 Mg 0 ea 12/10/24 09:00 12/13/24 08:54 Tablet PO 01/09/25 08:59 1 tablet QDAY ELVIN Administration Dapagliflozin 10 mg 12/10/24 09:00 12/13/24 08:37 Dapagliflozin Propanediol 5 Mg Tablet PO 01/09/25 08:59 10 mg On Hold: 12/13/24 09:03 QAM ELVIN Administration Dextrose 50 ml 12/10/24 06:01 Dextrose 50%-Water Inj 50 Ml Syringe IV 01/09/25 06:00 Q15MIN PRN BG <50 OR BG <70 & pt unresponsive Diclofenac Sodium 4 gm 12/10/24 15:13 12/12/24 09:49 Diclofenac 1% Top Gel 100 Gm Tube TOP 01/09/25 17:59 4 gm Q6HR PRN Administration elbow pain Protocol Gabapentin 300 mg 12/10/24 09:00 12/13/24 08:38 Gabapentin 300 Mg Capsule PO 01/09/25 08:59 300 mg DAILY ELVIN Administration Glucagon 1 mg 12/10/24 06:01 Glucagon Inj 1 Mg Vial IM Q15MIN PRN BG <70, and no IV access Hydromorphone HCl 4 mg 12/10/24 10:20 12/13/24 17:43 Hydromorphone Hcl 2 Mg Tablet PO 12/15/24 03:21 4 mg Q4H PRN Administration PAIN SEVERE 7-10 Insulin Degludec 8 unit 12/13/24 21:00 Insulin Degludec 5 Unit/0.05 Ml (Per 5 Units) ID 01/12/25 20:59 HS [facility] Insulin Human Lispro 0 unit 12/13/24 11:30 12/13/24 17:16 Insulin Lispro (Admelog) 1 Unit/0.01 Ml Unit SC 01/12/25 11:29 4 unit AC ELVIN Administration Protocol Lactulose 20 gm 12/11/24 10:00 12/13/24 08:39 Lactulose Syrup 20 Gm/30 Ml Udc PO 01/10/25 09:59 20 gm DAILY ELVIN Administration Protocol Levothyroxine Sodium 88 mcg 12/11/24 06:00 12/13/24 05:35 Levothyroxine Sodium 88 Mcg Tablet PO 01/10/25 05:59 88 mcg ACBR ELVIN Administration Lidocaine 1 patch 12/12/24 11:51 12/13/24 13:39 Lidocaine 5% 1 Patch TOP 01/11/25 11:50 1 patch UD PRN Administration PAIN Protocol Lorazepam 1 mg 12/10/24 18:00 12/13/24 17:19 Lorazepam 0.5 Mg Tablet PO 12/15/24 17:59 1 mg Q6HR ELVIN Administration Metolazone 5 mg 12/10/24 13:15 12/13/24 08:37 Metolazone 2.5 Mg Tablet PO 01/09/25 13:14 5 mg On Hold: 12/13/24 09:02 QDAY ELVIN Administration Mirtazapine 7.5 mg 12/10/24 21:00 12/12/24 21:38 Mirtazapine 15 Mg Tablet PO 01/09/25 20:59 7.5 mg HS ELVIN Administration Multivitamins 1 tab 12/11/24 10:45 12/13/24 08:38 Multivitamins Tablet PO 01/10/25 10:44 1 tab QDAY ELVIN Administration Naloxegol 25 mg 12/10/24 09:42 12/12/24 21:40 Naloxegol Oxalate 25 Mg Tablet (Non-Formulary) PO 01/09/25 09:41 25 mg HS ELVIN Administration Ondansetron HCl 4 mg 12/10/24 03:08 12/11/24 22:14 Ondansetron Inj 2 Mg/Ml Inj 2 Ml IVP 01/09/25 03:07 4 mg Q6H PRN Administration NAUSEA OR VOMITING Protocol Pantoprazole Sodium 40 mg 12/10/24 09:00 12/13/24 08:38 Pantoprazole 40 Mg Tablet PO 01/09/25 08:59 40 mg QDAY ELVIN Administration Sacubitril/Valsartan 1 tab 12/10/24 09:00 12/13/24 08:38 Sacubitril 24 Mg/Valsartan 26 Mg Tablet PO 01/09/25 08:59 1 tab BID ELVIN Administration Tamsulosin HCl 0.4 mg 12/10/24 03:30 12/12/24 21:39 Tamsulosin Hcl 0.4 Mg Capsule PO 01/09/25 03:29 0.4 mg HS ELVIN Administration Plan 54-year-old patient with past medical history significant for patient for hypertension, non-insulin dependent diabetes mellitus, hypothyroidism, A-fib on Eliquis, advanced cardiomyopathy with ICD in place, HFrEF (EF 30%), pulmonary HTN type II ,who presented to the ED on 12/09/2024 with chest pain, SOB and weight gain for the last 7 days #Acute on Chronic decompensated heart failure exacerbation #Heart failure with reduced ejection fraction [30%] status post ICD #Nonischemic cardiomyopathy #Atrial fibrillation?rate controlled #Hypertension Presented with clinical signs such as shortness of breath, dyspnea on exertion, bilateral leg swelling, CXR: Showing vascular congestion BNP: 485 CHADsVASc score 3 ; 3.2% risk of stroke/ TIA/systemic embolism HASBLED score 2 ; Moderate risk of major bleeding rate controlled with current management Echo: Dilated cardiomyopathy with severe left ventricle systolic dysfunction ejection fraction 25 to 30%. RV systolic function is moderately decreased. The right ventricular size is mildy increased. Mild to moderate tricuspid regurgitation with evidence of normal PA pressure approximately 35 mmHg. Evidence of pacemaker leads in the right ventricle. ? continue Bumex 2 mg IV once daily ? Eplerenone 50 mg daily ? Hold metolazone 5 mg at this time ? Continue rest of goal-directed medical therapy such as Entresto, Coreg, ? Continue Eliquis 5 mg twice daily ? Continue amiodarone as taken at home ? Keep K>4, Mg>2 ? Provide oxygen as required ? Strict I's and O's #Hypothyroidism #Hypertension # Hyperlipidemia #Ymo-[id number] type 2 diabetes #Chronic pain syndrome # Chronic normocytic anemia #Hx of anxiety # HX Depression - as per primary team Case discussed with my attending Dr. Leonel Graves MD PGY-2 Disclaimer: Despite multiple revisions, due to the dictation software being used, the document bellow may not be free of grammatical errors including phonetic/typographic errors. However, this does not deter from our commitment to providing health care in the patient's best interest in mind.
[2024-12-13] MEDS: INSULIN DEGLUDEC 5 UNIT/0.05 ML (PER 5 UNITS) 8 UNIT SC (21:04)
[2024-12-13] MEDS: ATORVASTATIN CALCIUM 20 MG TABLET 40 MG PO (21:05)
[2024-12-13] MEDS: TAMSULOSIN HCL 0.4 MG CAPSULE PO (21:13)
[2024-12-13] MEDS: NALOXEGOL OXALATE 25 MG TABLET (NON-FORMULARY) PO (21:21)
[2024-12-13] MEDS: MIRTAZAPINE 15 MG TABLET 7.5 MG PO (21:24)
[2024-12-14] VITALS (15 sets, daily range): BP systolic 111–122; BP diastolic 66–79; PULSE 56–101; RESP 11–23; TEMP 36.1–36.4; O2SAT 92–99; BMI 38.5
[2024-12-14] MEDS: HYDROMORPHONE HCL 2 MG TABLET 4 MG PO ×5 (04:15→23:46)
[2024-12-14 06:08] LABS: Basophils # (Auto) 0.1 Thou/mm3 (0.0-0.2); Basophils % (Auto) 1 % (0-2.5); Eosinophils # (Auto) 0.2 Thou/mm3 (0.0-0.5); Eosinophils % (Auto) 2 % (0-10); Hematocrit 36.4 % (41.0-53.0); Hemoglobin 12.1 g/dL (13.5-16.0); Immature Granulocytes Auto 0.04 Thou/mm3 (0.00-0.00); Lymphocytes # (Auto) 2.2 Thou/mm3 (1.0-4.8); Lymphocytes % (Auto) 24 % (10-50); Mean Corpuscular HGB Conc 33.2 g/dl (31.0-37.0); Mean Corpuscular Hemoglobin 28.9 pg (25.0-35.0); Mean Corpuscular Volume 87 fL (80-100); Monocytes # (Auto) 0.9 Thou/mm3 (0.0-0.8); Monocytes % (Auto) 10 % (0-12); Neutrophils # (Auto) 5.7 Thou/mm3 (1.8-7.7); Neutrophils % (Auto) 63 % (37-80); Nucleated Red Blood Cell # 0.00 Thou/mm3 (0.00-0.00); Nucleated Red Blood Cell % 0 /100 WBC (0); Platelet Count 286 Thou/mm3 (140-440); RDW Standard Deviation 41.6 fL (35.1-43.9); Red Blood Count 4.19 Miln/mm3 (4.50-5.90); White Blood Count 9.0 Thou/mm3 (3.8-10.6)
[2024-12-14] MEDS: LEVOTHYROXINE SODIUM 88 MCG TABLET PO (06:12)
[2024-12-14] MEDS: AMIODARONE HCL 200 MG TABLET 100 MG PO ×4 (06:12→21:20)
[2024-12-14 06:33] LABS: Anion Gap 11 (7-16); BUN/Creatinine Ratio 20 Ratio (12-20); Blood Urea Nitrogen 36 mg/dL (9-23); Calcium 10.3 mg/dL (8.3-10.6); Carbon Dioxide > 40.0 mMol/L (20.0-31.0); Chloride 80 mMol/L (98-107); Creatinine (Component) 1.8 mg/dL (0.6-1.3); Estimated Creatinine Clearance 70.9 mL/min (>60); Glucose 250 mg/dL (74-106); Magnesium 2.4 mg/dL (1.6-2.6); Osmolality,Calculated 278 (275-295); Phosphorous 4.8 mg/dL (2.4-5.1); Potassium 2.9 mMol/L (3.4-5.1); Sodium 131 mMol/L (136-145); eGFR 44 See Note
[2024-12-14] MEDS: INSULIN LISPRO (AdmeLOG) 1 UNIT/0.01 ML UNIT SC ×3 (07:52→17:03)
[2024-12-14] MEDS: LACTULOSE SYRUP 20 GM/30 ML UDC PO ×2 (08:26→14:38)
[2024-12-14] MEDS: BUMETANIDE INJ 0.25 MG/ML VIAL 4 ML 2 MG IVP (08:27)
[2024-12-14] MEDS: APIXABAN 2.5 MG TABLET 5 MG PO ×2 (08:28→21:19)
[2024-12-14] MEDS: PANTOPRAZOLE 40 MG TABLET PO (08:28)
[2024-12-14] MEDS: MULTIVITAMINS TABLET 1 TAB PO (08:28)
[2024-12-14] MEDS: GABAPENTIN 300 MG CAPSULE PO (08:29)
[2024-12-14] MEDS: EPLERENONE 50 MG TABLET PO (08:31)
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
[2024-12-14] MEDS: POTASSIUM CHLORIDE 10% 20 MEQ/15 ML UDC 40 MEQ GT ×3 (10:52→17:46)
--- NOTE | 2024-12-14 11:54 | ESPR_ITS ---
<Statement entered by Moses Montejo MD - 12/14/24 17:32> No acute overnight events. Seen and examined at bedside and he does not have any new complaints at this time. He states his elbow discomfort continues to improve as the days go by. Will continue with regimen from yesterday but recommended from nephrology to observe for another day. Vital signs remain stable, CBC stable, and chem panel showed worsening hypokalemia. Repeat K showed very slight increase after 80 mEq, HCO3 remains elevated, and Cr elevated but slightly lower compared to yesterday. Added insulin degludec today given elevated blood sugars. ----- Note reviewed and agree with care plan as documented. Please refer to the note below for further details. Plan discussed with attending physician Dr. Emmanuel Montejo MD PGY-2 Internal Medicine Documentation for date of: 12/14/24 Subjective Subjective Interval history: No overnight events. Labs significant for sodium of 131 potassium 2.9 down from 3.3, went back to 3.1. BUN trended upward to 36 from 29, creatinine trended downward to 1.8 from 1.9, glucose in the mid 200s. : Renal ultrasound yesterday showed mild bilateral renal parenchymal scar formation with no hydronephrosis masses. Vitals within normal parameters. Patient is able to tolerate potassium liquid. Will continue to monitor potassium. Will change IV Bumex to 1 g orally twice daily, patient is euvolemic. Exam Vital Signs Temp Pulse Resp BP Pulse Ox O2 Del Method O2 Flow Rate 96.9 F 68 12 115/68 99 Nasal Cannula 2 12/14/24 08:00 12/14/24 11:47 12/14/24 08:00 12/14/24 11:47 12/14/24 08:00 12/14/24 08:00 12/14/24 08:00 Narrative Exam General: Obese man. Awake and in no acute distress. Conversational and non- toxic appearing. Neurologic: GCS 15. Alert and oriented x3, no gross neurological deficit, and patient able to move all 4 extremities. HEENT: Normocephalic, atraumatic, mucous membranes moist. Pupils reactive to light. Heart: Regular rate and rhythm, normal S1 and S2, no murmurs. Lungs: Clear to auscultation bilaterally with no wheezing or crackles. Abdomen: Sizable mass in the mid epigastric to right upper quadrant area when the patient touches his chin to his chest, likely a hernia. Pain pump subcutaneous in the left upper quadrant. Obese. Extremities: Trace bilateral pitting edema of the lower extremities, right lower extremity bigger than left lower extremity. Skin: Warm. Dry. No rash or ecchymoses. Objective Labs 12/15/24 05:16 12/15/24 05:16 Labs: Laboratory Results - last 24 hr 12/13/24 12/14/24 15:03 05:00 WBC 9.0 RBC 4.19 L Hgb 12.1 L Hct 36.4 L MCV 87 MCH 28.9 MCHC 33.2 RDW Std Deviation 41.6 Plt Count 286 D Neut % (Auto) 63 Lymph % (Auto) 24 Terrell % (Auto) 10 Eos % (Auto) 2 Baso % (Auto) 1 Neut # (Auto) 5.7 Lymph # (Auto) 2.2 Terrell # (Auto) 0.9 H Eos # (Auto) 0.2 Baso # (Auto) 0.1 Immature Gran # (Auto) 0.04 H Absolute Nucleated RBC 0.00 Immature Gran % 0 Nucleated RBC % 0 Sodium 132 L 131 L Potassium 3.3 L 2.9 L Chloride 80 L 80 L Carbon Dioxide > 40.0 H > 40.0 H Anion Gap 12 11 BUN 29 H 36 H Creatinine 1.9 H 1.8 H Estim Creat Clear Calc 67.2 70.9 eGFR 41 L 44 L BUN/Creatinine Ratio 15 20 Glucose 238 H D 250 H Calculated Osmolality 278 278 Calcium 10.4 10.3 Corrected Calcium 10.4 H Phosphorus 5.1 4.8 Magnesium 2.4 Albumin 4.8 Quality Measures Quality Measures none Assessment & Plan Assessment Current Active Medications: Generic Name Dose Route Start Last Admin Trade Name Freq PRN Reason Stop Dose Admin Acetaminophen 650 mg 12/10/24 10:22 12/13/24 23:22 Acetaminophen 325 Mg Tablet PO 01/09/25 03:07 650 mg Q6H PRN Administration Fever >100.4 Amiodarone HCl 100 mg 12/10/24 09:15 12/14/24 11:47 Amiodarone Hcl 200 Mg Tablet PO 01/09/25 09:14 100 mg QID ELVIN Administration Apixaban 5 mg 12/10/24 09:00 12/14/24 08:28 Apixaban 2.5 Mg Tablet PO 01/09/25 08:59 5 mg BID ELVIN Administration Atorvastatin Calcium 40 mg 12/10/24 21:00 12/13/24 21:05 Atorvastatin Calcium 20 Mg Tablet PO 01/09/25 20:59 40 mg HS ELVIN Administration Bumetanide 1 mg 12/15/24 09:00 Bumetanide 0.5 Mg Tablet PO 01/14/25 08:59 BID ELVIN Carvedilol 25 mg 12/10/24 09:00 12/14/24 08:28 Carvedilol 12.5 Mg Tablet PO 01/09/25 08:59 25 mg BID ELVIN Administration Eplerenone 50 Mg 0 ea 12/10/24 09:00 12/14/24 08:31 Tablet PO 01/09/25 08:59 1 tablet QDAY ELVIN Administration Dapagliflozin 10 mg 12/10/24 09:00 12/13/24 08:37 Dapagliflozin Propanediol 5 Mg Tablet PO 01/09/25 08:59 10 mg On Hold: 12/13/24 09:03 QAM ELVIN Administration Dextrose 50 ml 12/10/24 06:01 Dextrose 50%-Water Inj 50 Ml Syringe IV 01/09/25 06:00 Q15MIN PRN BG <50 OR BG <70 & pt unresponsive Diclofenac Sodium 4 gm 12/10/24 15:13 12/12/24 09:49 Diclofenac 1% Top Gel 100 Gm Tube TOP 01/09/25 17:59 4 gm Q6HR PRN Administration elbow pain Protocol Gabapentin 300 mg 12/10/24 09:00 12/14/24 08:29 Gabapentin 300 Mg Capsule PO 01/09/25 08:59 300 mg DAILY ELVIN Administration Glucagon 1 mg 12/10/24 06:01 Glucagon Inj 1 Mg Vial IM Q15MIN PRN BG <70, and no IV access Hydromorphone HCl 4 mg 12/10/24 10:20 12/14/24 10:56 Hydromorphone Hcl 2 Mg Tablet PO 12/15/24 03:21 4 mg Q4H PRN Administration PAIN SEVERE 7-10 Insulin Degludec 8 unit 12/13/24 21:00 12/13/24 21:04 Insulin Degludec 5 Unit/0.05 Ml (Per 5 Units) SC 01/12/25 20:59 8 unit HS ELVIN Administration Insulin Human Lispro 0 unit 12/13/24 11:30 12/14/24 11:23 Insulin Lispro (Admelog) 1 Unit/0.01 Ml Unit SC 01/12/25 11:29 4 unit AC ELVIN Administration Protocol Lactulose 20 gm 12/11/24 10:00 12/14/24 08:26 Lactulose Syrup 20 Gm/30 Ml Udc PO 01/10/25 09:59 20 gm DAILY ELVIN Administration Protocol Levothyroxine Sodium 88 mcg 12/11/24 06:00 12/14/24 06:12 Levothyroxine Sodium 88 Mcg Tablet PO 01/10/25 05:59 88 mcg ACBR ELVIN Administration Lidocaine 1 patch 12/12/24 11:51 12/13/24 13:39 Lidocaine 5% 1 Patch TOP 01/11/25 11:50 1 patch UD PRN Administration PAIN Protocol Lorazepam 1 mg 12/10/24 18:00 12/14/24 11:48 Lorazepam 0.5 Mg Tablet PO 12/15/24 17:59 1 mg Q6HR ELVIN Administration Metolazone 5 mg 12/10/24 13:15 12/13/24 08:37 Metolazone 2.5 Mg Tablet PO 01/09/25 13:14 5 mg On Hold: 12/13/24 09:02 QDAY ELVIN Administration Mirtazapine 7.5 mg 12/10/24 21:00 12/13/24 21:24 Mirtazapine 15 Mg Tablet PO 01/09/25 20:59 7.5 mg HS ELVIN Administration Multivitamins 1 tab 12/11/24 10:45 12/14/24 08:28 Multivitamins Tablet PO 01/10/25 10:44 1 tab QDAY ELVIN Administration Naloxegol 25 mg 12/10/24 09:42 12/13/24 21:21 Naloxegol Oxalate 25 Mg Tablet (Non-Formulary) PO 01/09/25 09:41 25 mg HS ELVIN Administration Ondansetron HCl 4 mg 12/10/24 03:08 12/11/24 22:14 Ondansetron Inj 2 Mg/Ml Inj 2 Ml IVP 01/09/25 03:07 4 mg Q6H PRN Administration NAUSEA OR VOMITING Protocol Pantoprazole Sodium 40 mg 12/10/24 09:00 12/14/24 08:28 Pantoprazole 40 Mg Tablet PO 01/09/25 08:59 40 mg QDAY ELVIN Administration Potassium Chloride 40 meq 12/14/24 14:00 Potassium Chloride 10% 20 Meq/15 Ml Udc GT 12/14/24 14:01 X1 ONE Sacubitril/Valsartan 1 tab 12/10/24 09:00 12/14/24 08:28 Sacubitril 24 Mg/Valsartan 26 Mg Tablet PO 01/09/25 08:59 1 tab BID ELVIN Administration Tamsulosin HCl 0.4 mg 12/10/24 03:30 12/13/24 21:13 Tamsulosin Hcl 0.4 Mg Capsule PO 01/09/25 03:29 0.4 mg HS ELVIN Administration Plan Mr. Barnes is a 54-year-old patient with past medical history significant for patient for hypertension, non-insulin dependent diabetes mellitus, hypothyroidism, A-fib on Eliquis, cardiomyopathy s/p ICD in place, HFrEF? (EF 30%) on 2L home O2, pulmonary HTN type II ,who presented to the ED on 12/09/2024 for worsening chest pain, SOB requiring 3 L of O2 via NC (a liter above his baseline), bilateral lower extremity edema, and more than 20 pound weight gain during the previous week. Patient also had paroxysmal nocturnal dyspnea and orthopnea requiring multiple pillows to sleep. Patient was well controlled until recently when he started to develop progressive shortness of breath for the past week with associated chest pressure and increased abdominal girth. Patient was admitted for acute decompensated heart failure exacerbation. Patient was resumed on home GDMT with Entresto twice daily, Farxiga 10 mg, Coreg 25 mg twice daily, eplerenone 50 mg daily as well as aggressive diuresis with Bumex. #Acute decompensation of previously stable heart failure #HFrEF (EF 30%) S/P ICD #Nonischemic cardiomyopathy #Hx Pulmonary hypertension type II - Patient initially presented with worsening SOB on 3L NC. On physical examination noted abdominal and scrotal swelling,+2 edema BLE.? TTE done at Dr. Jak Castaneda's office on 12/23/2023 revealed LVEF 30% - CXR showing vascular congestion. BNP 485.? Troponin < 0.002 - In ED received lasix 40mg x2 - Allergy to aldactone - Patient is a client of Dr. Castaneda's clinic, cardiology on board - Patient is net - 10 L on 12/14/2024 - Echo on 12/10/2024 showed severe left ventricular systolic dysfunction with ejection fraction of 25-30%. Plan: - Continue home GDMT: Entresto 1 tab BID, Farxiga 10 mg, Coreg 25 mg p.o. BID, eplerenone 50mg qday - Changed IV Bumex 2 mg twice daily 1 g twice daily p.o. - Strict ins and outs - Diet: 2g sodium restriction - Daily weights - Fluid restriction 1500 ml - Supplemental O2 as needed, wean as tolerated - Keep K > 4 and Mg > 2 - Collection Support Specialist Dr. Castaneda consulted, appreciate recommendations #Atrial fibrillation, rate controlled - EKG revealed paced ventricular rhythm no ST changes, rate of 85 and QTc of 550 - Home medication : Coreg 25 Mg BID, amiodarone 200 Mg twice daily, Eliquis 5 Mg twice daily Plan: - Currently rate well-controlled with Coreg 25 mg, rhythm control amiodarone 200 mg p.o. BID daily, anticoagulant Eliquis 5 mg - resumed home medication as mentioned above - Continue to monitor on telemetry - Continue amiodarone as taken at home 100mg QID #JOSE - Patient's creatinine sd from 1.5 to 1.9 in 48 hours, currently 1.8 and stable, baseline creatinine around 1.5 - May have to compromise on kidney function in the presence of heart failure with reduced ejection fraction being treated with diuretics in the long-term Plan: - Bumex dose from 2 mg twice daily IV to 1 g p.o. twice daily - Continue to monitor creatinine #Hypokalemia - Potassium has ranged from 2.9-3.3, currently 3.1 - Patient refusing his oral and IV potassium supplementation - Ordered Banatrol packet which is 3.1 mL EQ's of potassium, 2 packets with each meal 3 times daily equates to 18 mill EQ total per day - Dietary on board, continuing high potassium diet - Patient has been tolerating oral potassium in liquid form Plan: - Dietary on board, continue to encourage potassium rich diet intake - Continue potassium 40 mill EQ GT liquid as tolerated - Given that a potassium rich diet involves increased carbohydrates, will continue degludec 8 units at bedtime because sugars are still in the 200s - Continue to trend potassium and blood sugar #Constipation -Patient reports abdominal fullness and pressure with last BM 2 days ago Plan: - Resumed home laxative Movantik p.o. 25 mg at bedtime ? Lactulose p.o. 20 mg syrup daily #Hypothyroidism - TSH 11.65 Plan: -Continue home levothyroxine 88 mcg ACBR #Hypertension - Patient has a established history of hypertension Plan: - Resume home medication as above # Hyperlipidemia - Last lipid panel showed triglyceride 192, cholesterol 152, LDL 58, HDL 56 Plan: -Continue home medication atorvastatin 40 mg QDAY #Qpc-husmsjj-dwiecojcs type 2 diabetes - On admission glucose 182 and A1c 8. Home Farxiga - Fingersticks have been in the 200s Plan: - Continue home Farxiga 10 mg po - Bedside glucose checks ACHS - Change sliding scale insulin from step to to step 3 - Started degludec 8 units at bedtime #Chronic pain syndrome #OA of Rt Elbow Per the patient he injured his elbow getting out of bed X-ray showed Mild elbow osteoarthritis. 6 mm posterior bony olecranon spur. Plan: - Continue home gabapentin 300 mg Qday? - Dilaudid 4 mg p.o. Q6H PRN? for pain control - Topical diclofenac 4 g every 4 hours as needed and lidocaine patch as needed #Chronic normocytic anemia - On admission hemoglobin 10.4, hematocrit 32.1.? For last 2 years H&H has been low but stable? Not actively bleeding Plan: -Continue to monitor H&H #Hx of anxiety #Hx Depression - Patient has an established history of anxiety and depression Plan: - Continue home mirtazapine 7.5 mg p.o.hs, - Continue home?Ativan 0.5 mg Q6h for severe anxiety Hospital management: Lines: peripheral IV Diet: Cardiac Bowel: Senna GI prophylaxis: Protonix 40 mg DVT prophylaxis: Eliquis 5mg Disposition: Patient is euvolemic, changed IV Bumex to oral. Continuing to monitor potassium. CODE STATUS: Full code This case was discussed with my attending physician Dr. Emmanuel LINARES and senior resident Dr. Gustabo LINARES PGY-2. Nikita Calvo DO PGY-1 Attending Provider Attestation/Addendum I Nell Benitez MD reviewed the note and agree with the resident's assessment & plan with modifications/additions/exceptions as below. I have personally reviewed labs, imaging, home meds/prior records, examined the patient, formulated and discussed management plan with the IM team. A 54-year-old male with history of HFrEF, EF, ICD in place, DM and chronic pain pump following spinal surgery admitted for acute decompensation of congestive heart failure. Has been diuresed well over 10 L net negative throughout hospitalization, EF is 25%, JOSE is improving with creatinine 1.8, noted to have hypokalemia however is refusing IV potassium supplementation. Will administer IV/p.o. KCl 80 mEq, continue GDMT, amiodarone, change Bumex to 1 mg p.o. twice daily, repeat BMP before discharge. Nephrology and cardiology is on board.
--- NOTE | 2024-12-14 13:07 | ESPR_ITS ---
<Statement entered by Tamara Castaneda MD - 12/16/24 14:10> I personally evaluated examined the patient in the telemetry floor patient remained stable potassium being corrected does not complain of chest pain shortness of breath significant amount of fluid last night feels well plan to discharge the patient home follow-up as an outpatient. Discharged home on oral Bumex 2 mg daily. Evaluated patient with resident physician PGY [address] Dr[address] Star LINARES agree with treatment plan recommendation as documented Documentation for date of: 12/14/24 Subjective Subjective Interval history: Patient seen today at the bedside found awake, alert, orientedx3. No overnight events reported. Vital signs stable at this time. No active complaints at this time. Can transition to PO Bumex as patient is now stable from heart failure perspective. Overall clinically improving. Can be discharged from cardiology standpoint. Exam Vital Signs Temp Pulse Resp BP Pulse Ox O2 Del Method O2 Flow Rate 97.5 F 68 16 115/68 98 Nasal Cannula 2 12/14/24 12:00 12/14/24 12:00 12/14/24 12:00 12/14/24 12:00 12/14/24 12:00 12/14/24 12:00 12/14/24 12:00 Narrative Exam Physical Exam GENERAL: NAD, AAOx3 HEENT: Moist mucosa. Eyes open, symmetrical, & clear CARDIO: Heart RRR, no obvious murmurs PULM: No noted coughing/dyspnea CTA B/L, no R/W/R GI: Abdomen distended, no pain on palpation. BSx4 SKIN/MSK/EXT: bilateral lower extremity edema-improving, right scrotal swelling, no pain on palpation. Pedal pulses present B/L NEURO: AAOx3, no focal neuro deficits, able to move all 4 extremities Objective Labs 12/15/24 05:16 12/15/24 05:16 Labs: Laboratory Results - last 24 hr 12/13/24 12/14/24 15:03 05:00 WBC 9.0 RBC 4.19 L Hgb 12.1 L Hct 36.4 L MCV 87 MCH 28.9 MCHC 33.2 RDW Std Deviation 41.6 Plt Count 286 D Neut % (Auto) 63 Lymph % (Auto) 24 Spink % (Auto) 10 Eos % (Auto) 2 Baso % (Auto) 1 Neut # (Auto) 5.7 Lymph # (Auto) 2.2 Spink # (Auto) 0.9 H Eos # (Auto) 0.2 Baso # (Auto) 0.1 Immature Gran # (Auto) 0.04 H Absolute Nucleated RBC 0.00 Immature Gran % 0 Nucleated RBC % 0 Sodium 132 L 131 L Potassium 3.3 L 2.9 L Chloride 80 L 80 L Carbon Dioxide > 40.0 H > 40.0 H Anion Gap 12 11 BUN 29 H 36 H Creatinine 1.9 H 1.8 H Estim Creat Clear Calc 67.2 70.9 eGFR 41 L 44 L BUN/Creatinine Ratio 15 20 Glucose 238 H D 250 H Calculated Osmolality 278 278 Calcium 10.4 10.3 Corrected Calcium 10.4 H Phosphorus 5.1 4.8 Magnesium 2.4 Albumin 4.8 Quality Measures Quality Measures none Assessment & Plan Assessment Current Active Medications: Generic Name Dose Route Start Last Admin Trade Name Freq PRN Reason Stop Dose Admin Acetaminophen 650 mg 12/10/24 10:22 12/13/24 23:22 Acetaminophen 325 Mg Tablet PO 01/09/25 03:07 650 mg Q6H PRN Administration Fever >100.4 Amiodarone HCl 100 mg 12/10/24 09:15 12/14/24 11:47 Amiodarone Hcl 200 Mg Tablet PO 01/09/25 09:14 100 mg QID ELVIN Administration Apixaban 5 mg 12/10/24 09:00 12/14/24 08:28 Apixaban 2.5 Mg Tablet PO 01/09/25 08:59 5 mg BID ELVIN Administration Atorvastatin Calcium 40 mg 12/10/24 21:00 12/13/24 21:05 Atorvastatin Calcium 20 Mg Tablet PO 01/09/25 20:59 40 mg HS ELVIN Administration Bumetanide 1 mg 12/15/24 09:00 Bumetanide 0.5 Mg Tablet PO 01/14/25 08:59 BID ELVIN Carvedilol 25 mg 12/10/24 09:00 12/14/24 08:28 Carvedilol 12.5 Mg Tablet PO 01/09/25 08:59 25 mg BID ELVIN Administration Eplerenone 50 Mg 0 ea 12/10/24 09:00 12/14/24 08:31 Tablet PO 01/09/25 08:59 1 tablet QDAY ELVIN Administration Dapagliflozin 10 mg 12/10/24 09:00 12/13/24 08:37 Dapagliflozin Propanediol 5 Mg Tablet PO 01/09/25 08:59 10 mg On Hold: 12/13/24 09:03 QAM ELVIN Administration Dextrose 50 ml 12/10/24 06:01 Dextrose 50%-Water Inj 50 Ml Syringe IV 01/09/25 06:00 Q15MIN PRN BG <50 OR BG <70 & pt unresponsive Diclofenac Sodium 4 gm 12/10/24 15:13 12/12/24 09:49 Diclofenac 1% Top Gel 100 Gm Tube TOP 01/09/25 17:59 4 gm Q6HR PRN Administration elbow pain Protocol Gabapentin 300 mg 12/10/24 09:00 12/14/24 08:29 Gabapentin 300 Mg Capsule PO 01/09/25 08:59 300 mg DAILY ELVIN Administration Glucagon 1 mg 12/10/24 06:01 Glucagon Inj 1 Mg Vial IM Q15MIN PRN BG <70, and no IV access Hydromorphone HCl 4 mg 12/10/24 10:20 12/14/24 10:56 Hydromorphone Hcl 2 Mg Tablet PO 12/15/24 03:21 4 mg Q4H PRN Administration PAIN SEVERE 7-10 Insulin Degludec 8 unit 12/13/24 21:00 12/13/24 21:04 Insulin Degludec 5 Unit/0.05 Ml (Per 5 Units) SC 01/12/25 20:59 8 unit HS ELVIN Administration Insulin Human Lispro 0 unit 12/13/24 11:30 12/14/24 11:23 Insulin Lispro (Admelog) 1 Unit/0.01 Ml Unit SC 01/12/25 11:29 4 unit AC ELVIN Administration Protocol Lactulose 20 gm 12/11/24 10:00 12/14/24 08:26 Lactulose Syrup 20 Gm/30 Ml Udc PO 01/10/25 09:59 20 gm DAILY ELVIN Administration Protocol Levothyroxine Sodium 88 mcg 12/11/24 06:00 12/14/24 06:12 Levothyroxine Sodium 88 Mcg Tablet PO 01/10/25 05:59 88 mcg ACBR ELVIN Administration Lidocaine 1 patch 12/12/24 11:51 12/13/24 13:39 Lidocaine 5% 1 Patch TOP 01/11/25 11:50 1 patch UD PRN Administration PAIN Protocol Lorazepam 1 mg 12/10/24 18:00 12/14/24 11:48 Lorazepam 0.5 Mg Tablet PO 12/15/24 17:59 1 mg Q6HR ELVIN Administration Metolazone 5 mg 12/10/24 13:15 12/13/24 08:37 Metolazone 2.5 Mg Tablet PO 01/09/25 13:14 5 mg On Hold: 12/13/24 09:02 QDAY ELVIN Administration Mirtazapine 7.5 mg 12/10/24 21:00 12/13/24 21:24 Mirtazapine 15 Mg Tablet PO 01/09/25 20:59 7.5 mg HS ELVIN Administration Multivitamins 1 tab 12/11/24 10:45 12/14/24 08:28 Multivitamins Tablet PO 01/10/25 10:44 1 tab QDAY ELVIN Administration Naloxegol 25 mg 12/10/24 09:42 12/13/24 21:21 Naloxegol Oxalate 25 Mg Tablet (Non-Formulary) PO 01/09/25 09:41 25 mg HS ELVIN Administration Ondansetron HCl 4 mg 12/10/24 03:08 12/11/24 22:14 Ondansetron Inj 2 Mg/Ml Inj 2 Ml IVP 01/09/25 03:07 4 mg Q6H PRN Administration NAUSEA OR VOMITING Protocol Pantoprazole Sodium 40 mg 12/10/24 09:00 12/14/24 08:28 Pantoprazole 40 Mg Tablet PO 01/09/25 08:59 40 mg QDAY ELVIN Administration Potassium Chloride 40 meq 12/14/24 14:00 Potassium Chloride 10% 20 Meq/15 Ml Udc GT 12/14/24 14:01 X1 ONE Sacubitril/Valsartan 1 tab 12/10/24 09:00 12/14/24 08:28 Sacubitril 24 Mg/Valsartan 26 Mg Tablet PO 01/09/25 08:59 1 tab BID ELVIN Administration Tamsulosin HCl 0.4 mg 12/10/24 03:30 12/13/24 21:13 Tamsulosin Hcl 0.4 Mg Capsule PO 01/09/25 03:29 0.4 mg HS ELVIN Administration Plan 54-year-old patient with past medical history significant for patient for hypertension, non-insulin dependent diabetes mellitus, hypothyroidism, A-fib on Eliquis, advanced cardiomyopathy with ICD in place, HFrEF (EF 30%), pulmonary HTN type II ,who presented to the ED on 12/09/2024 with chest pain, SOB and weight gain for the last 7 days #Acute on Chronic decompensated heart failure exacerbation #Heart failure with reduced ejection fraction [30%] status post ICD #Nonischemic cardiomyopathy #Atrial fibrillation?rate controlled #Hypertension Presented with clinical signs such as shortness of breath, dyspnea on exertion, bilateral leg swelling, CXR: Showing vascular congestion BNP: 485 CHADsVASc score 3 ; 3.2% risk of stroke/ TIA/systemic embolism HASBLED score 2 ; Moderate risk of major bleeding rate controlled with current management Echo: Dilated cardiomyopathy with severe left ventricle systolic dysfunction ejection fraction 25 to 30%. RV systolic function is moderately decreased. The right ventricular size is mildy increased. Mild to moderate tricuspid regurgitation with evidence of normal PA pressure approximately 35 mmHg. Evidence of pacemaker leads in the right ventricle. ? continue Bumex 2 mg IV once daily ? Eplerenone 50 mg daily ? Hold metolazone 5 mg at this time ? Continue rest of goal-directed medical therapy such as Entresto, Coreg, ? Continue Eliquis 5 mg twice daily ? Continue amiodarone as taken at home ? Keep K>4, Mg>2 ? Provide oxygen as required ? Strict I's and O's #Hypothyroidism #Hypertension # Hyperlipidemia #Nkg-[id number] type 2 diabetes #Chronic pain syndrome # Chronic normocytic anemia #Hx of anxiety # HX Depression - as per primary team Case discussed with my attending Dr. Leonel Graves MD PGY-2 Disclaimer: Despite multiple revisions, due to the dictation software being used, the document bellow may not be free of grammatical errors including phonetic/typographic errors. However, this does not deter from our commitment to providing health care in the patient's best interest in mind.
[2024-12-14 13:41] LABS: Potassium 3.1 mMol/L (3.4-5.1)
[2024-12-14] MEDS: ACETAMINOPHEN 325 MG TABLET 650 MG PO (14:38)
[2024-12-14] MEDS: LIDOCAINE 5% 1 PATCH TOP (20:39)
--- NOTE | 2024-12-14 21:16 | PC.NURSE ---
DR LASSITER NOTIFIED MOVANTIK NOT AVAILABLE MD SHERRIE OK TO SKIP TONIGHT DOSE. PT HAD LARGE BOWEL MOVEMENT TONIGHT.
[2024-12-14] MEDS: TAMSULOSIN HCL 0.4 MG CAPSULE PO (21:19)
[2024-12-14] MEDS: ATORVASTATIN CALCIUM 20 MG TABLET 40 MG PO (21:19)
[2024-12-14] MEDS: MIRTAZAPINE 15 MG TABLET 7.5 MG PO (21:20)
[2024-12-14] MEDS: INSULIN DEGLUDEC 5 UNIT/0.05 ML (PER 5 UNITS) 8 UNIT SC (21:21)
[2024-12-15] VITALS (11 sets, daily range): BP systolic 92–133; BP diastolic 56–91; PULSE 62–77; RESP 11–19; TEMP 36.1–36.3; O2SAT 95–99; BMI 38.2
[2024-12-15] MEDS: HYDROMORPHONE HCL 2 MG TABLET 4 MG PO ×2 (05:01→08:54)
[2024-12-15] MEDS: LEVOTHYROXINE SODIUM 88 MCG TABLET PO (05:48)
[2024-12-15] MEDS: AMIODARONE HCL 200 MG TABLET 100 MG PO ×2 (05:48→11:55)
[2024-12-15 05:57] LABS: Basophils # (Auto) 0.1 Thou/mm3 (0.0-0.2); Basophils % (Auto) 1 % (0-2.5); Eosinophils # (Auto) 0.2 Thou/mm3 (0.0-0.5); Eosinophils % (Auto) 2 % (0-10); Hematocrit 35.0 % (41.0-53.0); Hemoglobin 12.0 g/dL (13.5-16.0); Immature Granulocytes Auto 0.03 Thou/mm3 (0.00-0.00); Lymphocytes # (Auto) 2.1 Thou/mm3 (1.0-4.8); Lymphocytes % (Auto) 23 % (10-50); Mean Corpuscular HGB Conc 34.3 g/dl (31.0-37.0); Mean Corpuscular Hemoglobin 29.4 pg (25.0-35.0); Mean Corpuscular Volume 86 fL (80-100); Monocytes # (Auto) 0.9 Thou/mm3 (0.0-0.8); Monocytes % (Auto) 9 % (0-12); Neutrophils # (Auto) 5.8 Thou/mm3 (1.8-7.7); Neutrophils % (Auto) 64 % (37-80); Nucleated Red Blood Cell # 0.00 Thou/mm3 (0.00-0.00); Nucleated Red Blood Cell % 0 /100 WBC (0); Platelet Count 263 Thou/mm3 (140-440); RDW Standard Deviation 41.0 fL (35.1-43.9); Red Blood Count 4.08 Miln/mm3 (4.50-5.90); White Blood Count 9.1 Thou/mm3 (3.8-10.6)
[2024-12-15 06:16] LABS: Anion Gap 11 (7-16); BUN/Creatinine Ratio 25 Ratio (12-20); Blood Urea Nitrogen 45 mg/dL (9-23); Calcium 9.9 mg/dL (8.3-10.6); Carbon Dioxide 33.9 mMol/L (20.0-31.0); Chloride 85 mMol/L (98-107); Creatinine (Component) 1.8 mg/dL (0.6-1.3); Estimated Creatinine Clearance 70.7 mL/min (>60); Glucose 299 mg/dL (74-106); Magnesium 2.6 mg/dL (1.6-2.6); Osmolality,Calculated 283 (275-295); Phosphorous 4.0 mg/dL (2.4-5.1); Potassium 3.1 mMol/L (3.4-5.1); Sodium 130 mMol/L (136-145); eGFR 44 See Note
[2024-12-15] MEDS: POTASSIUM CHLORIDE 10% 20 MEQ/15 ML UDC 40 MEQ PO ×2 (07:20→08:54)
[2024-12-15] MEDS: INSULIN LISPRO (AdmeLOG) 1 UNIT/0.01 ML UNIT SC ×2 (07:20→11:27)
[2024-12-15] MEDS: MULTIVITAMINS TABLET 1 TAB PO (08:06)
[2024-12-15] MEDS: APIXABAN 2.5 MG TABLET 5 MG PO (08:07)
[2024-12-15] MEDS: PANTOPRAZOLE 40 MG TABLET PO (08:07)
[2024-12-15] MEDS: GABAPENTIN 300 MG CAPSULE PO (08:07)
[2024-12-15] MEDS: BUMETANIDE 0.5 MG TABLET 1 MG PO ×2 (08:07→08:55)
[2024-12-15] MEDS: LACTULOSE SYRUP 20 GM/30 ML UDC PO (08:08)
[2024-12-15] MEDS: EPLERENONE 50 MG TABLET PO (08:08)
[2024-12-15] MEDS: DAPAGLIFLOZIN PROPANEDIOL 5 MG TABLET 10 MG PO (08:54)
[2024-12-15] MEDS: ACETAMINOPHEN 325 MG TABLET 650 MG PO (08:58)
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
--- NOTE | 2024-12-15 13:13 | ESDS_ITS ---
<Statement entered by Phani Krause MD - 12/15/24 15:04> Patient was examined with the team including attending physician. Note reviewed, I agree with the discharge plan as documented. - Phani Krause MD PGY 3 Disclaimer: The document may contain phonetic/typographic errors due to voice recognition software. <Statement entered by Nell Benitez MD - 12/15/24 14:57> I Nell Benitez MD reviewed the note and agree with the resident's assessment & plan with modifications/additions/exceptions as below. I have personally reviewed labs, imaging, home meds/prior records, examined the patient, formulated and discussed management plan with the IM team. A 54-year-old male with history of HFrEF, EF, ICD in place, DM and chronic pain pump following spinal surgery admitted for acute decompensation of congestive heart failure. Has been diuresed well over 10 L net negative throughout hospitalization, EF is 25%, JOSE is improving, noted to have hypokalemia however is refusing IV potassium supplementation. continue GDMT, amiodarone, change Bumex to 1 mg p.o. twice daily, continue Eliquis, amiodarone, GDMT, will uptitrate as tolerated. Nephrology and cardiology is on board and recommended to follow-up postdischarge. Planned Discharge Date 12/15/24 DS: Providers Provider Date of admission: 12/10/24 03:08 Primary care physician: Physician No Primary/Family Admitting Provider: Neil Hernandez MD Attending Provider on Admission: Teresa Purcell DO Consults: 12/10/24 03:29 Consult to Cardiology Routine Comment: CHF exacerbation Consulting Provider: Tamara Castaneda 12/13/24 14:10 Consult to Nephrology Routine Comment: Consulting Provider: Riki Rascon Attending Provider on DC: Nell Benitez MD Discharging Provider: Nikita Calvo DO PGY-1 DS: Diagnosis Discharge Diagnosis (1) Acute exacerbation of CHF (congestive heart failure): Status: Acute Problem List Completed Was Problem List Reviewed/Reconciled?: Yes Hospital Course Hospital Course Hospital course: Hospital Course: 54-year-old male PMH of hypertension, mkh-jrspuyn-htablgdqn diabetes, hypothyroid, A-fib on Eliquis, cardiomyopathy with ICD in place, HFrEF with an EF of 30%, pulmonary hypertension type II, who came to the ED on 12/09/2024 with chest pain shortness of breath and weight gain for the past 7 days.? Was found to have a BNP of 45 and a chest x-ray showing moderate vascular congestion.? He was given Lasix 40 and admitted for acute CHF exacerbation management. The patient was diuresed during his hospital stay. His clinical picture of CHF improved demonstrated by reduced edema and improving lung sounds every day as well as improvement in his shortness of breath. He became hypokalemic during his stay and had trouble tolerating oral and IV potassium replenishment. He will be discharged on a liquid potassium solution to take every day. The patient's diuretic was switched from IV to oral once he became euvolemic. He will also be discharged on Bumex 1 mg twice daily. He should follow-up with his PCP and manager of supply chain within 1 to 2 weeks of discharge. His vitals were stable upon discharge. Problem List: #Acute decompensation of previously stable heart failure #HFrEF (EF 30%) S/P ICD #Nonischemic cardiomyopathy #Hx Pulmonary hypertension type II #Atrial fibrillation, rate controlled #JOSE #Hypokalemia #Constipation #Hypothyroidism #Hypertension #Hyperlipidemia # Uul-bantxuo-unfetcoej type 2 diabetes #Chronic pain syndrome #OA of Rt Elbow #Chronic normocytic anemia #History depression #History of anxiety Discharge Instructions: - Take your Bumex 1 mg once in the morning and once in the afternoon. - Stop taking metolazone until you follow-up with your manager of supply chain Dr. Castaneda. - Take your amiodarone 100 mg 4 times a day. - Take your potassium chloride capsule every day. - Continue all of your other home medications as prescribed. - Follow-up with Dr. Rascon within 1 to 2 weeks. Her phone number is [phone]. - Follow-up with Dr. Castaneda within 1 to 2 weeks. His phone number is [phone]. - If you do not have a PCP, you can follow-up at the [facility]. - Return to ED if symptoms worsen. The patient was seen and discussed with my attending physician Dr. Emmanuel LINARES and my senior resident Dr. Nelida LINARES PGY-3. Nikita Calvo DO PGY-1 Time Spent with Patient Time attestation: Total time spent providing and/or coordinating discharge services: Greater than 50% Time spent: Greater than 30 minutes Exam Vital Signs Temp Pulse Resp BP Pulse Ox O2 Del Method O2 Flow Rate 97.4 F 73 19 133/75 H 95 Nasal Cannula 2 12/15/24 08:00 12/15/24 13:07 12/15/24 11:01 12/15/24 13:07 12/15/24 11:01 12/15/24 08:00 12/15/24 11:01 Narrative Exam General: Obese man. Awake and in no acute distress. Conversational and non- toxic appearing. Neurologic: GCS 15. Alert and oriented x3, no gross neurological deficit, and patient able to move all 4 extremities. HEENT: Normocephalic, atraumatic, mucous membranes moist. Pupils reactive to light. Heart: Regular rate and rhythm, normal S1 and S2, no murmurs. Lungs: Clear to auscultation bilaterally with no wheezing or crackles. Abdomen: Sizable mass in the mid epigastric to right upper quadrant area when the patient touches his chin to his chest, likely a hernia. Pain pump subcutaneous in the left upper quadrant. Obese. Extremities: Trace bilateral pitting edema of the lower extremities, right lower extremity bigger than left lower extremity. Right upper extremity has swelling around the elbow extending distally to about two thirds of the length of the dorsal forearm. Skin: Warm. Dry. No rash or ecchymoses. Discharge Plan Plan Patient Disposition: HOME (Self Care) Patient condition on transfer: Stable Care Plan Goals: - Take your Bumex 1 mg twice daily. - Stop taking metolazone. - Take your amiodarone 100 mg 4 times a day. - Take your potassium chloride capsule every day. - Continue all of your other home medications as prescribed. - Follow-up with Dr. Rascon within 1 to 2 weeks. Her phone number is [phone]. - Follow-up with Dr. Castaneda within 1 to 2 weeks. His phone number is [phone]. - If you do not have a PCP, you can follow-up at the [facility]. - Return to ED if symptoms worsen. Prescriptions/Referrals Prescriptions/Med Rec: New amiodarone 100 mg tablet 100 mg PO QID 30 Days Qty: 120 0RF lidocaine 5 % adhesive patch,medicated 1 patch topical QDAY Qty: 15 0RF Rx Instructions: leave on most painful area for up to 12 hrs bumetanide 1 mg tablet 1 mg PO BID 30 Days Qty: 60 0RF Rx Instructions: Take 1mg in the morning + 1mg in the afternoon potassium chloride 20 mEq/15 mL liquid 20 meq PO .qotherday 30 Days Qty: 1200 0RF Continued tamsulosin 0.4 mg capsule 0.4 mg PO QHS hydromorphone 4 mg tablet 4 mg PO 6 TIMES DAILY ondansetron HCl [Zofran] 4 mg tablet 8 mg PO QDAY PRN (Reason: Nausea And Vomiting) lorazepam 0.5 mg Tablet 1 mg PO 4XD levothyroxine 50 mcg Tablet 88 mcg PO DAILY fluticasone propionate 50 mcg/actuation [place],Suspension 1 spray INTRANASAL QDAY epinephrine 0.3 mg/0.3 mL Auto-Injector 0.3 mg SUBCUT PRN PRN (Reason: Allergic Reaction) metformin 500 mg tablet 500 mg PO BID Qty: 60 0RF carvedilol 25 mg tablet 25 mg PO TID Patient Comments: TAKE 1 TABLET BY MOUTH 3 TIMES A DAY WITH FOOD eplerenone 50 mg tablet 50 mg PO QDAY Patient Comments: TAKE 1 TABLET BY MOUTH EVERY DAY atorvastatin 40 mg tablet 40 mg PO QDAY Patient Comments: TAKE 1 TABLET BY MOUTH EVERY DAY FOR 90 DAYS esomeprazole magnesium 40 mg capsule,delayed release(DR/EC) 40 mg PO QDAY Patient Comments: TAKE 1 CAPSULE BY MOUTH EVERY DAY amitriptyline 25 mg tablet 25 mg PO BID Patient Comments: TAKE 1 TABLET BY MOUTH TWICE A DAY mirtazapine 7.5 mg tablet 7.5 mg PO HS Patient Comments: TAKE 1 TABLET BY MOUTH EVERY DAY AT NIGHT gabapentin 300 mg capsule 300 mg PO TID Patient Comments: TAKE 1 CAPSULE BY MOUTH EVERY DAY multivitamin Tablet 1 tab PO QDAY Stool Softener-Stimulant Laxat 8.6-50 mg Capsule 1 tab-cap PO BID PRN (Reason: Constipation) Movantik 25 mg Tablet 25 mg PO HS Qty: 30 0RF sacubitril-valsartan [Entresto] 24-26 mg Tablet 1 tab PO BID Qty: 60 0RF Eliquis 5 mg tablet 5 mg PO BID Qty: 60 0RF dapagliflozin propanediol [Farxiga] 10 mg tablet 10 mg PO QAM Qty: 30 0RF Held metolazone 5 mg tablet 5 mg PO QDAY Hold Instructions: Resume on 12/22/24. Hold until follow up with PCP and Nephrology Patient Comments: TAKE 1 TABLET BY MOUTH EVERY DAY Discontinued bumetanide 2 mg tablet 2 mg PO QDAY Patient Comments: TAKE 1 TABLET BY MOUTH EVERY DAY FOR 90 DAYS amiodarone 200 mg tablet 200 mg PO BID Patient Comments: TAKE 1 TABLET BY MOUTH TWICE A DAY bumetanide 1 MG tablet 2 mg PO DAILY 30 Days Qty: 60 0RF Referrals: No Primary/Family,Physician [Primary Care Provider] Patient/Caregiver Discharge Instructions Education Materials: What Is Heart Failure, Low-Salt Choices, Heart Failure Making Changes to ... Print Language: German Stand Alone Forms: Sherley Award Info., Patient Portal Info Letter Discharge Order Discharge Orders: Discharge (Routine); Ordered 12/15/24 Ordered By: Phani Krause Quality Discharge Quality Measures none
== END 2024-12-15 13:33 | disposition home or self-care (01) | DRG 291 ==
LOC: SERX 12-10 02:28 → SERHOLD 12-10 03:23 → S2NX 12-10 04:55
PROVIDERS: Physician Assistant; Student in an Organized Health Care Education/Training Program; Admitting Provider Student in an Organized Health Care Education/Training Program; Emergency Provider Emergency Medicine; Visit Provider Internal Medicine
DX: I13.0 Hypertensive heart and chronic kidney disease with heart failure and stage 1 through stage 4 chronic kidney disease, or unspecified chronic kidney disease (principal); I50.23 Acute on chronic systolic (congestive) heart failure; N17.9 Acute kidney failure, unspecified; E87.4 Mixed disorder of acid-base balance; I48.91 Unspecified atrial fibrillation; E03.9 Hypothyroidism, unspecified; I42.0 Dilated cardiomyopathy; E78.5 Hyperlipidemia, unspecified; G89.4 Chronic pain syndrome; E11.22 Type 2 diabetes mellitus with diabetic chronic kidney disease; Z95.810 Presence of automatic (implantable) cardiac defibrillator; Z79.01 Long term (current) use of anticoagulants; Z79.84 Long term (current) use of oral hypoglycemic drugs; E11.65 Type 2 diabetes mellitus with hyperglycemia; F41.9 Anxiety disorder, unspecified; I27.22 Pulmonary hypertension due to left heart disease; M19.021 Primary osteoarthritis, right elbow; N18.9 Chronic kidney disease, unspecified; Z79.890 Hormone replacement therapy; Z53.20 Procedure and treatment not carried out because of patient's decision for unspecified reasons; D63.1 Anemia in chronic kidney disease; I07.1 Rheumatic tricuspid insufficiency; Z79.4 Long term (current) use of insulin; E87.6 Hypokalemia; Z79.899 Other long term (current) drug therapy; Z99.81 Dependence on supplemental oxygen; Z88.8 Allergy status to other drugs, medicaments and biological substances; F32.A Depression, unspecified; F17.220 Nicotine dependence, chewing tobacco, uncomplicated; G89.29 Other chronic pain; K59.00 Constipation, unspecified; N50.89 Other specified disorders of the male genital organs
CPT/HCPCS: 36415; 71045; 73080; 76770; 80048; 80053; 80069; 83036; 83735; 83880; 84100; 84132; 84484; 85025; 85610; 93005; 93306; 96374; 96375; 99284; J1120; J1815; J1938; J2405; J3475; J3480; J3490; J7050; J8499; A9270

== ENCOUNTER → 2025-01-15 | Outpatient (CLI) | payer MEDICARE, MEDICAID, SELFPAY ==
[2025-01-15 17:28] LABS: Albumin, Serum 4.6 gm/dL (3.5-5.0); Anion Gap 12 (7-16); BUN/Creatinine Ratio 11 Ratio (12-20); Blood Urea Nitrogen 17 mg/dL (9-23); Calcium 9.3 mg/dL (8.3-10.6); Calcium (Corrected) 9.3 mg/dL (8.5-10.1); Carbon Dioxide 36.9 mMol/L (20.0-31.0); Chloride 90 mMol/L (98-107); Creatinine (Component) 1.5 mg/dL (0.6-1.3); Glucose 172 mg/dL (74-106); Osmolality,Calculated 283 (275-295); Phosphorous 3.8 mg/dL (2.4-5.1); Potassium 3.7 mMol/L (3.4-5.1); Sodium 139 mMol/L (136-145); eGFR 55 See Note
== END | disposition home or self-care (01) ==
LOC: COPL 16:36
PROVIDERS: PCP Internal Medicine; Referring Provider Internal Medicine Cardiovascular Disease; Visit Provider Internal Medicine Cardiovascular Disease
DX: I50.22 Chronic systolic (congestive) heart failure (principal)
CPT/HCPCS: 36415; 80069